=== PATIENT | female | born 1950 | race Caucasian/White ===

== ENCOUNTER → 2018-04-19 12:44 | Outpatient (CLI) | payer MEDICARE, MEDICAID, SELFPAY ==
--- NOTE | 2018-04-19 | DI.MRI.S_ITS ---
PROCEDURE: MR KNEE RT WO CON INDICATIONS: UNILATERAL PRIMARY OSTEOARTHRITIS RIGHT KNEE TECHNIQUE: Noncontrast sagittal PD fast spin echo and T2 fast spin echo with fat saturation, sagittal 3-D FLASH with fat saturation; coronal T1 spin echo and PD fast spin echo with fat saturation, and axial PD fast spin echo with fat saturation through the knee. COMPARISON: [facility], MR, KNEE WITHOUT CONTRAST, 03/10/2012 FINDINGS: Image quality: Excellent. Menisci: Lateral meniscus is intact. There is medial extrusion of the medial meniscus, as before. Previously seen radial tear of the posterior horn medial meniscus is no longer seen. There is new amorphous high signal intensity the within the free edge of the posterior horn medial meniscus and medial meniscal body, demonstrating superior and inferior articular surface extension, indicating degenerative tearing. Cruciate ligaments: The anterior and posterior cruciate ligaments appear intact. Medial structures: The medial collateral ligament appears intact. Visualized portions of the pes anserinus tendons appear normal. No abnormal bursal fluid. Lateral structures: The lateral collateral ligament, long and short heads of the biceps femoris tendon appear intact. The popliteus tendon appears normal. Iliotibial band appears normal. Anterior structures: The quadriceps and patellar tendons appear intact. Mild T2 signal elevation within the patellar tendon and the patellar insertion site is present, new since the prior examination. Patellar alignment is normal. No femoral trochlear dysplasia or ventral trochlear prominence. No edema in the infrapatellar fat pad. Bones and cartilage: No bone marrow contusions or fractures. Moderate tricompartmental periarticular osteophyte formation is present. Severe articular cartilage loss overlies the lateral patellar apex and adjacent aspect of lateral patellar facet, and has progressed compared to prior examination. An underlying intraosseous ganglia within the lateral patellar facet is present. Severe articular cartilage loss overlies the medial aspect of the medial patellar facet, which is increased. Severe diffuse articular cartilage loss overlies the weightbearing aspects of the medial femoral condyle and medial tibial plateau, as before. There is a new focal region of full-thickness articular cartilage loss overlying the posterior weightbearing aspect of the lateral femoral condyle measuring 8 mm anteroposteriorly. Joint space: There is a small knee joint effusion. There are 2 intra-articular loose bodies posteriorly measuring 8 mm and 5 mm. No Pérez's cyst. Normal appearing synovial plicae are incidentally noted. IMPRESSION: 1. Medial meniscal tearing as above. 2. Tricompartmental articular cartilage loss as described above. 3. Patellar tendinitis. 3. Small knee joint effusion. Intra-articular loose bodies. Dictated by: Mauricio Jung M.D. on 04/19/2018 at 15:36 Approved by: Mauricio Jung M.D. on 04/19/2018 at 15:42
== END ==
PROVIDERS: Family Provider Internal Medicine; PCP Internal Medicine; Visit Provider Orthopaedic Surgery
DX: M17.11 Unilateral primary osteoarthritis, right knee (principal); M23.221 Derangement of posterior horn of medial meniscus due to old tear or injury, right knee; M76.51 Patellar tendinitis, right knee; M25.461 Effusion, right knee
CPT/HCPCS: 73721

== ENCOUNTER 2018-05-10 12:05 | Inpatient (IN) | payer MEDICARE, MEDICAID, SELFPAY ==
[2018-04-28 14:01] VITALS: BMI 30.6
--- NOTE | 2018-05-09 16:08 | SUR.PREOP ---
Dr. Tapia notified pt's platelets 84 and shown EKG, VVO to repeat EKG and CBC DOS
[2018-05-10] VITALS (11 sets, daily range): BP systolic 105–134; BP diastolic 54–76; PULSE 67–93; RESP 12–20; TEMP 36.4–37.2; O2SAT 97–100; BMI 30.6
--- NOTE | 2018-05-10 06:00 | DI.RAD.S_ITS ---
PROCEDURE: XR KNEE RT 1TO2V INDICATIONS: total right knee TECHNIQUE: 2 view(s) of the knee acquired. COMPARISON: [facility] JOHNIE Kolb, XR KNEE ARTHRITIC SERIES LT, 12/08/2017, 15:22. FINDINGS: Bones: Patient is status post knee joint arthroplasty. Hardware components are in expected positions. Visualized bony structures are intact. Soft tissues: Overlying postoperative changes are noted. IMPRESSION: Normal alignment after right total knee arthroplasty, with a surgical drain overlying the operative bed. Dictated by: Boston Salvador M.D. on 05/11/2018 at 0:08 Approved by: Boston Salvador M.D. on 05/11/2018 at 0:09
[2018-05-10] MEDS: LACTATED RINGERS 1,000 ML 42 ML IV ×2 (13:05→15:27)
[2018-05-10] MEDS: VANCOMYCIN 1,000 MG/200 ML FROZ.PIGGY 200 MG IV (13:05)
[2018-05-10] MEDS: PREGABALIN 75 MG CAPSULE PO (13:36)
[2018-05-10] MEDS: ACETAMINOPHEN 325 MG TABLET 975 MG PO ×2 (13:36→21:44)
[2018-05-10 13:57] LABS: Add Manual Diff / Slide Review NO; Basophils Percent Auto 0.3 % (0-2); Eosinophils Percent Auto 1.1 % (2-4); Hemoglobin 13.7 g/dL (12.0-16.0); Lymphocytes Percent Auto 12.4 % (25-40); Mean Corpuscular HGB Conc 33.5 % (30-36); Mean Corpuscular Hemoglobin 33.1 PG (26-34); Mean Corpuscular Volume 98.9 fL (80-100); Monocytes Percent Auto 4.1 % (3-14); Neutrophils Absolute Auto 5700 /uL (3000-5900); Neutrophils Percent Auto 82.1 % (50-75); Platelet Count 135 X10^3/uL (150-400); Red Blood Cell Count 4.14 X10^6/uL (4.0-5.2); Red Cell Distribution Width 14.3 % (11.6-14.8); White Blood Cell Count 6.9 X10^3/uL (4.5-11.0)
[2018-05-10] MEDS: fentaNYL 100 MCG/2 ML INJ IV ×2 (14:10→14:15)
[2018-05-10] MEDS: MIDAZOLAM 2 MG/2 ML VIAL IV (14:15)
[2018-05-10] MEDS: CEFAZOLIN 2 GM/100 ML FROZ.PIGGY IV ×2 (14:35→21:43)
--- NOTE | 2018-05-10 14:42 | PM.PREOP ---
Pre-operative Note Interval Note Pre-op Check: Yes History & Physical Reviewed by Physician and Yes Exam Performed Changes: Yes
--- NOTE | 2018-05-10 14:43 | PM.OP.1 ---
Operative Date/Time/Diagnoses Date of procedure: 05/10/18 Time of procedure: 14:43 Pre-op diagnosis: right knee OA Post-op diagnosis: same Procedure & Clinicians Procedure: right total knee arthroplasty Same procedure as scheduled: Yes Indications: The patient has had progressively worsening right knee pain with radiographic changes consistent with arthritis. Non-operative management has failed and the patient has requested total knee replacement. The risks, benefits and alternatives to surgery were discussed with the patient prior to proceeding. Risks discussed included, but were not limited to, failure to relieve pain, stiffness, infection, nerve damage, deep venous thrombosis, pulmonary embolism, stroke, coma, heart attack, permanent paralysis and , as well as the potential need for eventual revision of the prosthetic. Surgeon: Areli Cotto Spot Sprayer: Beena Simon Anesthesia Type: Spinal and Peripheral nerve block Operative Notes Findings: Severe right knee osteoarthritis Closure Type: primary Specimen(s): none sent Implants & Drains: Journey BCS2 femur 5, tibia 3, poly 10, patella 32x7.5 Applied: drain(s) Estimated Blood Loss (mL): 300 Blood products transfused: none Tourniquet time (min): 61 Procedure in detail: The patient was seen in the pre-operative area, where the patient identified the right knee as the operative site and this was marked with my initials. The patient received pre-operative antibiotics, and was taken to the operating room and placed on the operative table in the supine position. After satisfactory anesthesia, a multimedia services manager out was performed. The right leg was encircled with a tourniquet about the proximal thigh, and the leg was prepared from the toes to the tourniquet with ChloroPrep in the usual fashion and draped through sterile drapes. The leg was elevated and exsanguinated with Eschmark bandage and the tourniquet inflated to [250] mmHg pressure. The knee was approached through an approximately 18 cm incision centered over the patella and carried into the knee through a medial parapatellar arthrotomy. A portion of the medial and lateral meniscus was resected. Soft tissue was carefully mobilized around the patella the patella was measured with a caliper. Bone was resected from the patella and the patellar height was reconstituted with up an appropriate sized patellar component. A cover was then placed on the patella. A small amount of additional medial and lateral meniscus was resected. The visionare guide fit well to the distal femur. It looked like an appropriate distal femoral cut and the cut was made without difficulty. The rotation was assessed and the appropriate size femoral guide was placed on the distal femur and finishing cuts were made. There is no evidence of notching. The anterior, posterior and chamfer cuts were then made. The posterior osteophytes and soft tissues were then removed. The posterior capsule was injected with part of a mixture of 60 ml 0.25% Marcaine mixed with 20 ml Exparel for post operative pain control. The remainder of this mixture was injected into the capsule and subcutaneous tissues during cement curing. The tibia was prepared and the visionaire guide fit well to the distal tibia. The rotation was assessed. The patient was placed in extension residual medial and lateral meniscus as well as any residual bone was carefully resected. [No] additional tibia was resected. Hemostasis was achieved especially posteriorly. Additional local was injected into the posterior capsule. The extension gap was assessed and additional releases for gap balancing were performed as necessary. It was checked with the gap occupational therapy professor. The femoral component was trial was placed and the notch was finished. Trial tibial and femoral components were then placed and the knee placed through a range of motion. Range of motion was [0-130], with good stability throughout the range. The trials were then removed, and the tibia was finished. The bone was prepared with pulsatile lavage, and dried with a sponge. Cement was applied and the final prosthetics placed. Excess cement was removed during and after cement curing. A brief Betadine soak was performed. After confirming there was no extruded cement posteriorly, the final tibial insert was placed. The knee was copiously irrigated and the tourniquet deflated. Hemostasis was obtained with the Bovie. A drain was placed and brought out superolaterally. The capsule was closed with interrupted nonabsorbable sutures. The subcutaneous layer was closed with barbed sutures, and the skin with a running 3-0 V-Lock suture and Surgical glue. An Aquacel Ag dressing was applied and the patient was taken to recovery having tolerated the procedure well. Complications: none Condition: stable Disposition: Acute Care Plan for aftercare: The patient will be maintained on a standard total knee replacement protocol with weight bearing as tolerated. The patient will receive aspirin and sequential compression devices for DVT prophylaxis. The patient will be discharged home when safe for the home environment.
--- NOTE | 2018-05-10 15:15 | SUR.OPER ---
Supine on padded OR bed. Pillow under head, arms secured on padded armboards <90 degree abduction. Safety belt across torso. Non-operative leg secured with tape over blanket over lower leg. Operative leg secured in DeMayo/Blaze positioner. Foam padded brace at thigh of operative leg.
[2018-05-10] MEDS: BUPIVACAINE LIPOSOME 266 MG/20 ML VIAL INJ (15:23)
[2018-05-10] MEDS: BUPIVACAINE 0.25% W/ EPI VIAL 60 ML INJ (15:24)
[2018-05-10] MEDS: TRANEXAMIC ACID 1,000 MG VIAL 1000 MG INJ (15:25)
[2018-05-10] MEDS: POVIDONE-IODINE 15 ML, SODIUM CHLORIDE 0.9% 250 ML TOP (15:26)
[2018-05-10] MEDS: fentaNYL 100 MCG/2 ML INJ 25 MCG IV ×2 (17:15→17:20)
[2018-05-10] MEDS: HYDROCORTISONE 100 MG/2 ML VIAL IV (17:22)
--- NOTE | 2018-05-10 19:46 | PC.NURSE ---
jimmie note pt received from PACU, awake, alert and oriented X 4. Pt able to lift legs off bed. Does have numbness to feet and buttocks. Pt tolerated pudding with no N/V. Pt assisted up to BSC with walker. Pt had a small amount of urine incontinence while getting out of bed, but unable to void on commode. Anesthesia started at 14:30 per records, so patient needs to void by 22:30. Hemovac drain unclamped at 19:00.
[2018-05-10] MEDS: LACTATED RINGERS 1,000 ML 125 ML IV (20:12)
[2018-05-10] MEDS: DOCUSATE 100 MG CAPSULE PO (21:44)
[2018-05-10] MEDS: ASPIRIN EC 81 MG TABLET PO (21:44)
[2018-05-10] MEDS: CYCLOBENZAPRINE 10 MG TABLET 20 MG PO (21:44)
[2018-05-10] MEDS: risperiDONE 1 MG TABLET PO (21:46)
[2018-05-10] MEDS: HYDROXYCHLOROQUINE 200 MG TABLET 400 MG PO (21:46)
[2018-05-10] MEDS: OXYCODONE IR 5 MG TABLET PO (22:19)
[2018-05-10] MEDS: ZOLPIDEM 5 MG TABLET PO (22:33)
[2018-05-11] VITALS (9 sets, daily range): BP systolic 105–147; BP diastolic 56–96; PULSE 66–90; RESP 16–20; TEMP 35.9–37.1; O2SAT 94–98
[2018-05-11] MEDS: OXYCODONE IR 5 MG TABLET PO ×6 (03:15→21:50)
[2018-05-11 05:08] LABS: Hematocrit 32.7 % (36-46); Hemoglobin 11.2 g/dL (12.0-16.0)
[2018-05-11] MEDS: CEFAZOLIN 2 GM/100 ML FROZ.PIGGY IV (05:32)
--- NOTE | 2018-05-11 07:34 | P.PN_ITS ---
Subjective Date Patient Seen: 05/11/18 Time Patient Seen: 07:32 Interval history: Patient's pain is mild. Denies fever chills. No nausea vomiting. Otherwise without complaints this morning. Exam Vital Signs (past 8 hours): - 05/11/18 00:18 05/11/18 04:49 Temperature 97.4 F L 96.7 F L Pulse Rate 73 70 Respiratory Rate 16 16 Blood Pressure 109/63 110/56 L Pulse Oximetry 96 96 Oxygen Delivery Method Room Air Oxygen Flow Rate 18 Narrative Exam Narrative: 67-year-old female resting comfortably in bed in no apparent distress. Right knee dressing is clean, dry and intact. Motor functions intact distal right lower extremity. Sensation grossly intact to light touch. Objective Labs Result Diagrams: 05/11/18 04:42 Labs: Laboratory Results - last 24 hr 05/10/18 05/10/18 05/11/18 13:15 17:55 04:42 WBC 6.9 RBC 4.14 Hgb 13.7 11.2 L Hct 41.0 32.7 L MCV 98.9 MCH 33.1 MCHC 33.5 RDW 14.3 Plt Count 135 L Neut % (Auto) 82.1 H Lymph % (Auto) 12.4 L [place] % (Auto) 4.1 Eos % (Auto) 1.1 L Baso % (Auto) 0.3 Neut # (Auto) 5700 Nasal Screen MRSA (PCR) Negative for mrsa Assessment & Plan Post-op Postoperative Procedures Operation Date: 05/10/18 13:45 Actual Procedures Side Surgeon p Total Knee Arthroplasty Right Areli Cotto MD patient progressing as expected status post right total knee arthroplasty. Mobilize with physical therapy. [facility].
[2018-05-11] MEDS: SODIUM CHLORIDE 0.9% FLUSH 10 ML IV ×2 (08:27→21:58)
[2018-05-11] MEDS: ASPIRIN EC 81 MG TABLET PO ×2 (08:32→21:51)
[2018-05-11] MEDS: ACETAMINOPHEN 325 MG TABLET 975 MG PO ×3 (08:32→21:50)
[2018-05-11] MEDS: LEVOTHYROXINE 125 MCG TABLET PO (08:32)
[2018-05-11] MEDS: CHOLECALCIFEROL (VITAMIN D3) 1,000 UNIT TABLET 4000 UNIT PO (08:33)
[2018-05-11] MEDS: DOCUSATE 100 MG CAPSULE PO ×2 (08:34→21:51)
[2018-05-11] MEDS: CYCLOBENZAPRINE 10 MG TABLET PO (08:34)
[2018-05-11] MEDS: METFORMIN HCL 500 MG TABLET PO ×2 (08:34→21:52)
[2018-05-11] MEDS: risperiDONE 0.25 MG TABLET 0.5 MG PO (08:34)
[2018-05-11] MEDS: buPROPion SR 150 MG TAB 300 MG PO (10:01)
[2018-05-11] MEDS: Dextroamphetamine-Amphetamine 30 MG 30 EACH PO (10:01)
[2018-05-11] MEDS: predniSONE 5 MG TABLET 15 MG PO (10:02)
--- NOTE | 2018-05-11 10:27 | PT.IIE ---
Addendum entered and electronically signed by Margie Girard PT 05/11/18 13:54: This is to certify that I have reviewed this documentation and plan of care Original Note: Current Diagnoses Unilateral primary osteoarthritis, left knee (05/10/18) Surgery Performed Operation Date: 05/10/18 13:45 Actual Procedures p Total Knee Arthroplasty(Right) - Areli Cotto MD Surgical History (Last Updated 05/02/18 @ 13:56 by Sherice Christopher RN) History of arthroplasty of left knee (Acute) History of delivery (Acute) History of mandibular surgery (Acute) Hx of arthroscopy of right knee (Acute) Hx of cholecystectomy (Acute) Status post bilateral cataract extraction (Acute) Medical History (Last Updated 05/02/18 @ 13:56 by Sherice Christopher RN) ADHD (Acute) Balance problem (Acute) Bipolar 1 disorder (Acute) Chronic back pain (Acute) Chronic diarrhea (Acute) Concussion (Acute) HIGGINBOTHAM (dyspnea on exertion) (Acute) Depression (Acute) Diabetes (Acute) Fibromyalgia (Acute) Hyperlipemia (Acute) Hypothyroidism (Acute) Interstitial lung disease (Acute) PTSD (post-traumatic stress disorder) (Acute) Pneumonia (Acute) Sleep apnea with use of continuous positive airway pressure (CPAP) (Acute) Physical Therapy Inpatient Evaluation/Re-Eval M1 PT/OT-IP Prior Functional Status Start: 05/11/18 12:23 Freq: NEEDED Status: Active Protocol: Document 05/11/18 10:27 (Rec: 05/11/18 13:36 [id number]) Medical Review Prior Functional Status Medical History Reviewed Yes Communication No deficits noted. Mobility and Gait Pt ambulated indep primarily with a SPC indoors/outdoors but occasionally ambulates without AD or a 4WW indoors. Prior Functional Level (Other details) States prior independence with all mobilities. Social History Household Members other Living Arrangements House Number of Floors (Floors) One Floor Number of Stairs To Enter/Railing? 2 steps with bilateral wide rails. Home Environment Standard Height Toilet Tub/Shower Home Equipment Four Wheel Walker Straight Cane Shower Seat with Backrest Employment Status Unknown Additional Social History Comment Pt lives alone. She has a roommate who works and is in and out but otherwise reports no regular home assistance availiable. M2 PT-IP Current Condition Start: 05/11/18 12:23 Freq: NEEDED Status: Active Protocol: Document 05/11/18 10:27 (Rec: 05/11/18 13:36 [id number]) Physical Therapy Current Condition Current Condition Evaluation Date 05/11/18 Treatment Diagnosis R TKA; difficulty with gait Onset Date 05/10/18 Weight Bearing Status Weight Bearing Status Weight Bear as Tolerated M3 PT-IP Subjective Start: 05/11/18 12:23 Freq: NEEDED Status: Active Protocol: Document 05/11/18 10:27 (Rec: 05/11/18 13:36 [id number]) Subjective Physical Therapy Visit Type Type Initial Evaluation Visit Start Time 10:27 Visit Stop Time 11:04 Total Visit Minutes 37 Number of LAB ANIMAL TECHNICIAN Visits 0 Physical Therapy Visit Comments Patient Comments Pt states she is in high levels of pain. Yesterday she was unable to put any weight at all into the RLE due to pain. Therapy Pain Assessment Pain When Pain Assessed After Treatment Pain Present Pain Present Pain Reported Location Right Knee Intensity 8 Scale Used Numeric (1 - 10) Pain Management Techniques Apply Cold Re-positioning Timing of Activity with Medications M4 PT-IP Mobility and Gait Start: 05/11/18 12:23 Freq: NEEDED Status: Active Protocol: Document 05/11/18 10:27 (Rec: 05/11/18 13:36 [id number]) PT-Bed Mobility Assessment Supine to Sit Supine to Sit Standby Assistance Sit to Supine Sit to Supine Minimal Assistance Scooting Scooting to Edge of Bed Standby Assistance PT-Transfer Assessment Sit to and From Stand Sit to and from Stand Minimal Assistance Equipment Transfer Assistive Device Gait Belt Front Wheeled Walker Orthotic/Prosthetic Devices or Brace: No Comments Mobility Comments Pt needing ample time and mod cues/instruction for all bed mobilities. Pt requiring Radha x1 for sit > supine for assist guiding RLE to bedside. She prefers to get in/out of the bed to the L side as this is how her bed is at home. Min cues needed to avoid UE support on Fww when sit <> stand. Gait Assessment Gait Gait Assistance Required: Minimum Assistance Distance (Feet) 10 Able to Maintain Weight Bearing Status Yes During Gait Assistive Devices Assistive Device Gait Belt Front Wheeled Walker Orthotic/Prosthetic Devices or Brace: No Gait Deviations General Gait Pattern Antalgic Decreased Stride Length Decreased Feet Clearance Factors Limiting Gait Function Factors Limiting Gait Function Decreased Activity Tolerance Decreased Strength Incoordination Limited Range of Motion Pain Poor Balance Poor Safety Awareness Comments Gait Comments Pt ambulates 10+10 feet in room to recliner and back to bed. Needs cues to activate quads for RLE support during stance phase. Pt demonstrates variable step width and has inconsistent step through vs step to gait. Gait speed is decreased. PT-Balance Assessment Sitting Balance and Reactions Static Sitting Balance Ability Good Dynamic Sitting Balance Ability Good Standing Balance and Reactions Static Standing Balance Ability Fair Dynamic Standing Balance Ability Fair Device Used FWW M5 PT-IP Objective Assessments Start: 05/11/18 12:23 Freq: NEEDED Status: Active Protocol: Document 05/11/18 10:27 (Rec: 05/11/18 13:36 [id number]) Orientation Orientation/Cognition Level of Alertness Alert Orientation Name Birthday Place Situation Safety Awareness Decreased Safety Awareness Comments pt able to make needs known. Gross Range of Motion Lower Extremity ROM Assessment Right Impaired Impairments R knee flexion ~40 deg. Strength Lower Extremity Strength Assessment Bilaterally Impaired Comments Strength Comments RLE grossly 2+ to 3-/5 with c/ o of high levels of pain. LLE 4-/5 Sensation Assessment Sensation Gross Sensation WNL M6 PT-IP Treatment Start: 05/11/18 12:23 Freq: NEEDED Status: Active Protocol: Document 05/11/18 10:27 (Rec: 05/11/18 13:36 [id number]) Physical Therapy Treatment Education Education Provided Weight Bearing Status Safety M7 PT-IP Assessment and Plan Start: 05/11/18 12:23 Freq: NEEDED Status: Active Protocol: Document 05/11/18 10:27 (Rec: 05/11/18 13:36 [id number]) PT Summary Assessment and Plan Potential Rehabilitation Potential Good Status of Condition at Evaluation Stable Summary Impairments Pain ROM Strength Balance Coordination Bed Mobility Transfers Gait Activity Tolerance Progress Towards Goals Progressing Toward Goals Assessment Summary Pt s/p R TKA and difficulty with gait. Primary impairments include decreased BLE strength demonstrated by need for Radha during sit<> stand. Impaired gait speed and variable step width demonstrates a risk for falls. Recommend d/c to SNF due to patient level of assist and risk for falls and has no available support at home. Goals Bed Mobility Goal Standby Assistance Transfer Goal Standby Assistance Front Wheeled Walker Gait Goal Standby Assistance Front Wheel Walker Gait Distance 100 Other Goals STG: pt will ambulate 50 ft using consistent step through gait pattern with Fww, min cues and CGA. LTG: pt will ambulate 100 ft using consistent step through gait pattern with Fww, min cues and CGA. Days to Meet Goals 3 Frequency of Treatment Frequency Of Treatment Twice a Day Treatment Plan Physical Therapy Treatment Plan Bed Mobility Training Transfer Training Gait Training Therapeutic Exercise Balance Retraining Post Op Education Discharge Planning Hot or Cold Pack Neuromuscular Re-ed Coordination Retraining Other Recommendations and Next Treatment Continue to progress work on Focus sit <> stand transfers and gait training. Recommendations To Nursing Amount of Assist Needed 1 Person Assist Discharge Recommendations PT Discharge Recommendations SNF Rehab
--- NOTE | 2018-05-11 13:53 | PT.IIE ---
Current Diagnoses Unilateral primary osteoarthritis, left knee (05/10/18) Surgery Performed Operation Date: 05/10/18 13:45 Actual Procedures p Total Knee Arthroplasty(Right) - Areli Cotto MD Surgical History (Last Updated 05/02/18 @ 13:56 by Sherice Christopher RN) History of arthroplasty of left knee (Acute) History of delivery (Acute) History of mandibular surgery (Acute) Hx of arthroscopy of right knee (Acute) Hx of cholecystectomy (Acute) Status post bilateral cataract extraction (Acute) Medical History (Last Updated 05/02/18 @ 13:56 by Sherice Christopher RN) ADHD (Acute) Balance problem (Acute) Bipolar 1 disorder (Acute) Chronic back pain (Acute) Chronic diarrhea (Acute) Concussion (Acute) HIGGINBOTHAM (dyspnea on exertion) (Acute) Depression (Acute) Diabetes (Acute) Fibromyalgia (Acute) Hyperlipemia (Acute) Hypothyroidism (Acute) Interstitial lung disease (Acute) PTSD (post-traumatic stress disorder) (Acute) Pneumonia (Acute) Sleep apnea with use of continuous positive airway pressure (CPAP) (Acute) Physical Therapy Inpatient Evaluation/Re-Eval M1 PT/OT-IP Prior Functional Status Start: 05/11/18 12:23 Freq: NEEDED Status: Active Protocol: Document 05/11/18 10:27 (Rec: 05/11/18 13:36 [id number]) Medical Review Prior Functional Status Medical History Reviewed Yes Communication No deficits noted. Mobility and Gait Pt ambulated indep primarily with a SPC indoors/outdoors but occasionally ambulates without AD or a 4WW indoors. Prior Functional Level (Other details) States prior independence with all mobilities. Social History Household Members other Living Arrangements House Number of Floors (Floors) One Floor Number of Stairs To Enter/Railing? 2 steps with bilateral wide rails. Home Environment Standard Height Toilet Tub/Shower Home Equipment Four Wheel Walker Straight Cane Shower Seat with Backrest Employment Status Unknown Additional Social History Comment Pt lives alone. She has a roommate who works and is in and out but otherwise reports no regular home assistance availiable. M2 PT-IP Current Condition Start: 05/11/18 12:23 Freq: NEEDED Status: Active Protocol: Document 05/11/18 10:27 (Rec: 05/11/18 13:36 [id number]) Physical Therapy Current Condition Current Condition Evaluation Date 05/11/18 Treatment Diagnosis R TKA; difficulty with gait Onset Date 05/10/18 Weight Bearing Status Weight Bearing Status Weight Bear as Tolerated M3 PT-IP Subjective Start: 05/11/18 12:23 Freq: NEEDED Status: Active Protocol: Document 05/11/18 10:27 (Rec: 05/11/18 13:36 [id number]) Subjective Physical Therapy Visit Type Type Initial Evaluation Visit Start Time 10:27 Visit Stop Time 11:04 Total Visit Minutes 37 Number of ANIMAL SHELTER SUPERVISOR Visits 0 Physical Therapy Visit Comments Patient Comments Pt states she is in high levels of pain. Yesterday she was unable to put any weight at all into the RLE due to pain. Therapy Pain Assessment Pain When Pain Assessed After Treatment Pain Present Pain Present Pain Reported Location Right Knee Intensity 8 Scale Used Numeric (1 - 10) Pain Management Techniques Apply Cold Re-positioning Timing of Activity with Medications M4 PT-IP Mobility and Gait Start: 05/11/18 12:23 Freq: NEEDED Status: Active Protocol: Document 05/11/18 10:27 (Rec: 05/11/18 13:36 [id number]) PT-Bed Mobility Assessment Supine to Sit Supine to Sit Standby Assistance Sit to Supine Sit to Supine Minimal Assistance Scooting Scooting to Edge of Bed Standby Assistance PT-Transfer Assessment Sit to and From Stand Sit to and from Stand Minimal Assistance Equipment Transfer Assistive Device Gait Belt Front Wheeled Walker Orthotic/Prosthetic Devices or Brace: No Comments Mobility Comments Pt needing ample time and mod cues/instruction for all bed mobilities. Pt requiring Radha x1 for sit > supine for assist guiding RLE to bedside. She prefers to get in/out of the bed to the L side as this is how her bed is at home. Min cues needed to avoid UE support on Fww when sit <> stand. Gait Assessment Gait Gait Assistance Required: Minimum Assistance Distance (Feet) 10 Able to Maintain Weight Bearing Status Yes During Gait Assistive Devices Assistive Device Gait Belt Front Wheeled Walker Orthotic/Prosthetic Devices or Brace: No Gait Deviations General Gait Pattern Antalgic Decreased Stride Length Decreased Feet Clearance Factors Limiting Gait Function Factors Limiting Gait Function Decreased Activity Tolerance Decreased Strength Incoordination Limited Range of Motion Pain Poor Balance Poor Safety Awareness Comments Gait Comments Pt ambulates 10+10 feet in room to recliner and back to bed. Needs cues to activate quads for RLE support during stance phase. Pt demonstrates variable step width and has inconsistent step through vs step to gait. Gait speed is decreased. PT-Balance Assessment Sitting Balance and Reactions Static Sitting Balance Ability Good Dynamic Sitting Balance Ability Good Standing Balance and Reactions Static Standing Balance Ability Fair Dynamic Standing Balance Ability Fair Device Used FWW M5 PT-IP Objective Assessments Start: 05/11/18 12:23 Freq: NEEDED Status: Active Protocol: Document 05/11/18 10:27 (Rec: 05/11/18 13:36 [id number]) Orientation Orientation/Cognition Level of Alertness Alert Orientation Name Birthday Place Situation Safety Awareness Decreased Safety Awareness Comments pt able to make needs known. Gross Range of Motion Lower Extremity ROM Assessment Right Impaired Impairments R knee flexion ~40 deg. Strength Lower Extremity Strength Assessment Bilaterally Impaired Comments Strength Comments RLE grossly 2+ to 3-/5 with c/ o of high levels of pain. LLE 4-/5 Sensation Assessment Sensation Gross Sensation WNL M6 PT-IP Treatment Start: 05/11/18 12:23 Freq: NEEDED Status: Active Protocol: Document 05/11/18 10:27 (Rec: 05/11/18 13:36 [id number]) Physical Therapy Treatment Education Education Provided Weight Bearing Status Safety M7 PT-IP Assessment and Plan Start: 05/11/18 12:23 Freq: NEEDED Status: Active Protocol: Document 05/11/18 10:27 (Rec: 05/11/18 13:36 [id number]) PT Summary Assessment and Plan Potential Rehabilitation Potential Good Status of Condition at Evaluation Stable Summary Impairments Pain ROM Strength Balance Coordination Bed Mobility Transfers Gait Activity Tolerance Progress Towards Goals Progressing Toward Goals Assessment Summary Pt s/p R TKA and difficulty with gait. Primary impairments include decreased BLE strength demonstrated by need for Radha during sit<> stand. Impaired gait speed and variable step width demonstrates a risk for falls. Recommend d/c to SNF due to patient level of assist and risk for falls and has no available support at home. Goals Bed Mobility Goal Standby Assistance Transfer Goal Standby Assistance Front Wheeled Walker Gait Goal Standby Assistance Front Wheel Walker Gait Distance 100 Other Goals STG: pt will ambulate 50 ft using consistent step through gait pattern with Fww, min cues and CGA. LTG: pt will ambulate 100 ft using consistent step through gait pattern with Fww, min cues and CGA. Days to Meet Goals 3 Frequency of Treatment Frequency Of Treatment Twice a Day Treatment Plan Physical Therapy Treatment Plan Bed Mobility Training Transfer Training Gait Training Therapeutic Exercise Balance Retraining Post Op Education Discharge Planning Hot or Cold Pack Neuromuscular Re-ed Coordination Retraining Other Recommendations and Next Treatment Continue to progress work on Focus sit <> stand transfers and gait training. Recommendations To Nursing Amount of Assist Needed 1 Person Assist Discharge Recommendations PT Discharge Recommendations SNF Rehab
--- NOTE | 2018-05-11 14:34 | PC.NURSE ---
pt transferred to room 214 in her bed - she is tolerating PT well and using bsc as needed- good appetite and reports no nausea. Oxycododne 5mg po q 3 hours along with scheduled acetaminophen are keeping pt comfortable at present
--- NOTE | 2018-05-11 15:00 | PT.IPTN ---
Current Diagnoses Unilateral primary osteoarthritis, left knee (05/10/18) Surgery Performed Operation Date: 05/10/18 13:45 Actual Procedures p Total Knee Arthroplasty(Right) - Areli Cotto MD Physical Therapy Treatment Note M2 PT-IP Current Condition Start: 05/11/18 12:23 Freq: NEEDED Status: Active Protocol: Document 05/11/18 10:27 (Rec: 05/11/18 13:36 [id number]) Physical Therapy Current Condition Current Condition Evaluation Date 05/11/18 Treatment Diagnosis R TKA; difficulty with gait Onset Date 05/10/18 Weight Bearing Status Weight Bearing Status Weight Bear as Tolerated M3 PT-IP Subjective Start: 05/11/18 12:23 Freq: NEEDED Status: Active Protocol: Document 05/11/18 15:00 GGD (Rec: 05/11/18 15:22 GGD [id number]) Subjective Physical Therapy Visit Type Type Treatment Note Visit Start Time 14:35 Visit Stop Time 15:00 Total Visit Minutes 25 Number of BIOMETRIC FINGERPRINTING TECHNICIAN Visits 1 Physical Therapy Visit Comments Patient Comments Pt states that she needs to use the bathroom. Therapy Pain Assessment Pain When Pain Assessed During Mobility Pain Present Pain Present Pain Reported Location Right Knee Intensity 5 Scale Used Numeric (1 - 10) Pain Management Techniques Timing of Activity with Medications M4 PT-IP Mobility and Gait Start: 05/11/18 12:23 Freq: NEEDED Status: Active Protocol: Document 05/11/18 15:00 GGD (Rec: 05/11/18 15:22 GGD [id number]) PT-Bed Mobility Assessment Supine to Sit Supine to Sit Minimal Assistance Sit to Supine Sit to Supine Minimal Assistance Scooting Scooting to Edge of Bed Standby Assistance PT-Transfer Assessment Sit to and From Stand Sit to and from Stand Contact Guard Assistance Use of Upper Extremities Equipment Transfer Assistive Device Gait Belt Front Wheeled Walker Orthotic/Prosthetic Devices or Brace: No Transfers Transfer Destination Bed Bedside Commode Comments Mobility Comments Pt needed min A for assistance with RLE. Gait Assessment Gait Gait Assistance Required: Contact Guard Assist Distance (Feet) 30 Able to Maintain Weight Bearing Status Yes During Gait Assistive Devices Assistive Device Gait Belt Front Wheeled Walker Orthotic/Prosthetic Devices or Brace: No Gait Deviations General Gait Pattern Antalgic Decreased Stride Length Decreased Feet Clearance Factors Limiting Gait Function Factors Limiting Gait Function Decreased Strength Limited Range of Motion Pain M5 PT-IP Objective Assessments Start: 05/11/18 12:23 Freq: NEEDED Status: Active Protocol: Document 05/11/18 10:27 (Rec: 05/11/18 13:36 [id number]) Orientation Orientation/Cognition Level of Alertness Alert Orientation Name Birthday Place Situation Safety Awareness Decreased Safety Awareness Comments pt able to make needs known. Gross Range of Motion Lower Extremity ROM Assessment Right Impaired Impairments R knee flexion ~40 deg. Strength Lower Extremity Strength Assessment Bilaterally Impaired Comments Strength Comments RLE grossly 2+ to 3-/5 with c/ o of high levels of pain. LLE 4-/5 Sensation Assessment Sensation Gross Sensation WNL M6 PT-IP Treatment Start: 05/11/18 12:23 Freq: NEEDED Status: Active Protocol: Document 05/11/18 15:00 GGD (Rec: 05/11/18 15:22 GGD [id number]) Physical Therapy Treatment Education Education Provided Post-Op Packet M7 PT-IP Assessment and Plan Start: 05/11/18 12:23 Freq: NEEDED Status: Active Protocol: Document 05/11/18 15:00 GGD (Rec: 05/11/18 15:22 GGD [id number]) PT Summary Assessment and Plan Summary Assessment Summary Pt needs assistance with R LE for bed mobility. She was stable with gait, but did have decrease step length. She need cues for hand and foot placement with transfers. Frequency of Treatment Frequency Of Treatment Twice a Day Treatment Plan Other Recommendations and Next Treatment Continue to progress work on Focus sit <> stand transfers and gait training. Recommendations To Nursing Amount of Assist Needed 1 Person Assist Discharge Recommendations PT Discharge Recommendations SNF Rehab
[2018-05-11] MEDS: ALBUTEROL 2.5 MG/3 ML NEB (ADULT) INH (17:39)
--- NOTE | 2018-05-11 18:43 | PC.NURSE ---
1600- Pt sitting up in bed using PC. 97% RA, LS clear, CMS ++ PP+. 1830-Pt medicated with percolone 5mg PO as requested for pain 12/09. Acewrap removed from right knee per Dr. Cotto. Pt resting quietly in bed watching TV. Call light in reach, bed alarm on.
[2018-05-11] MEDS: CYCLOBENZAPRINE 10 MG TABLET 20 MG PO (21:51)
[2018-05-11] MEDS: HYDROXYCHLOROQUINE 200 MG TABLET 400 MG PO (21:52)
[2018-05-11] MEDS: risperiDONE 1 MG TABLET PO (21:52)
[2018-05-11] MEDS: ZOLPIDEM 5 MG TABLET PO (21:58)
[2018-05-12] VITALS (8 sets, daily range): BP systolic 104–134; BP diastolic 54–64; PULSE 64–80; RESP 16–18; TEMP 35.6–36.8; O2SAT 97–100
[2018-05-12] MEDS: LEVOTHYROXINE 125 MCG TABLET PO (05:51)
[2018-05-12] MEDS: OXYCODONE IR 5 MG TABLET PO ×6 (06:18→21:00)
--- NOTE | 2018-05-12 06:45 | PC.NURSE ---
Pt refused to get up to the BR. pt does not have the urge to void. hemovac output: 60cc
[2018-05-12] MEDS: ACETAMINOPHEN 325 MG TABLET 975 MG PO ×3 (08:46→21:00)
[2018-05-12] MEDS: ALBUTEROL 2.5 MG/3 ML NEB (ADULT) INH ×2 (09:07→17:48)
--- NOTE | 2018-05-12 09:13 | P.PN_ITS ---
Subjective Date Patient Seen: 05/12/18 Interval history: Patient seen bedside s/p r. TKA POD #2. Patient is doing well , is having pain but it is not an unexpected amount. She denies CP, SOB, N/V, and calf pain. She is recommended for discharge to a SNF. Exam Vital Signs (past 8 hours): - 05/12/18 04:01 05/12/18 04:33 05/12/18 08:00 Temperature 96.1 F L 97.6 F 97.3 F L Pulse Rate 66 66 Respiratory Rate 18 16 Blood Pressure 134/60 110/64 Pulse Oximetry 98 100 Oxygen Delivery Method CPAP Oxygen Flow Rate 0 Narrative Exam Narrative: WDWN NAD A&OX3. Right knee dressing is CDI, minimal drainage in the hemovac drain. She is NVI in the right extremity with a soft and compressible calf. Objective Labs Result Diagrams: 05/11/18 04:42 Assessment & Plan Post-op Postoperative Procedures Operation Date: 05/10/18 13:45 Actual Procedures Side Surgeon p Total Knee Arthroplasty Right Areli Cotto MD 1. Continue pain control, PT 2. Remove hemovac drain 3. D/c to [facility] tomorrow pending auth and beds
[2018-05-12] MEDS: CYCLOBENZAPRINE 10 MG TABLET PO (09:49)
[2018-05-12] MEDS: SODIUM CHLORIDE 0.9% FLUSH 10 ML IV ×2 (09:49→20:00)
[2018-05-12] MEDS: buPROPion SR 150 MG TAB 300 MG PO (09:49)
[2018-05-12] MEDS: predniSONE 5 MG TABLET 15 MG PO (09:49)
[2018-05-12] MEDS: DOCUSATE 100 MG CAPSULE PO ×2 (09:50→20:03)
[2018-05-12] MEDS: METFORMIN HCL 500 MG TABLET PO ×2 (09:50→20:05)
[2018-05-12] MEDS: risperiDONE 0.25 MG TABLET 0.5 MG PO (09:50)
[2018-05-12] MEDS: CHOLECALCIFEROL (VITAMIN D3) 1,000 UNIT TABLET 4000 UNIT PO (09:51)
[2018-05-12] MEDS: ASPIRIN EC 81 MG TABLET PO ×2 (09:51→20:01)
[2018-05-12] MEDS: Dextroamphetamine-Amphetamine 30 MG 30 EACH PO (09:55)
--- NOTE | 2018-05-12 10:34 | PC.NURSE ---
Day shift: Per convo w/ CATHERINE Verdin Polo-vac removed by student at this time. 2x2 gauze w/ tegaderm in place. Labeled and dated. Pt also up OOB w/ PT tolerated ambulating in halls. Call light in reach and bed alarm is on.
--- NOTE | 2018-05-12 10:35 | PT.IPTN ---
Current Diagnoses Unilateral primary osteoarthritis, left knee (05/10/18) Surgery Performed Operation Date: 05/10/18 13:45 Actual Procedures p Total Knee Arthroplasty(Right) - Areli Cotto MD Physical Therapy Treatment Note M2 PT-IP Current Condition Start: 05/11/18 12:23 Freq: NEEDED Status: Active Protocol: Document 05/11/18 10:27 (Rec: 05/11/18 13:36 [id number]) Physical Therapy Current Condition Current Condition Evaluation Date 05/11/18 Treatment Diagnosis R TKA; difficulty with gait Onset Date 05/10/18 Weight Bearing Status Weight Bearing Status Weight Bear as Tolerated M3 PT-IP Subjective Start: 05/11/18 12:23 Freq: NEEDED Status: Active Protocol: Document 05/12/18 10:35 GGD (Rec: 05/12/18 12:33 GGD [id number]) Subjective Physical Therapy Visit Type Type Treatment Note Visit Start Time 10:05 Visit Stop Time 10:35 Total Visit Minutes 30 Number of STAIR BUILDER Visits 2 Physical Therapy Visit Comments Patient Comments Pt states she would like to go to the bathroom. Therapy Pain Assessment Pain When Pain Assessed During Mobility Pain Present Pain Present Pain Reported Location Right Knee Intensity 6 Scale Used Numeric (1 - 10) Pain Management Techniques Timing of Activity with Medications M4 PT-IP Mobility and Gait Start: 05/11/18 12:23 Freq: NEEDED Status: Active Protocol: Document 05/12/18 10:35 GGD (Rec: 05/12/18 12:33 GGD [id number]) PT-Bed Mobility Assessment Supine to Sit Supine to Sit Minimal Assistance Sit to Supine Sit to Supine Minimal Assistance Scooting Scooting to Edge of Bed Standby Assistance PT-Transfer Assessment Sit to and From Stand Sit to and from Stand Contact Guard Assistance Use of Upper Extremities Equipment Transfer Assistive Device Gait Belt Front Wheeled Walker Orthotic/Prosthetic Devices or Brace: No Transfers Transfer Destination Bed Toilet Comments Mobility Comments Pt needed min A for assistance with RLE. Gait Assessment Gait Gait Assistance Required: Contact Guard Assist Distance (Feet) 80 Able to Maintain Weight Bearing Status Yes During Gait Assistive Devices Assistive Device Gait Belt Front Wheeled Walker Orthotic/Prosthetic Devices or Brace: No Gait Deviations General Gait Pattern Antalgic Decreased Stride Length Decreased Feet Clearance Factors Limiting Gait Function Factors Limiting Gait Function Decreased Strength Limited Range of Motion Pain M5 PT-IP Objective Assessments Start: 05/11/18 12:23 Freq: NEEDED Status: Active Protocol: Document 05/11/18 10:27 (Rec: 05/11/18 13:36 [id number]) Orientation Orientation/Cognition Level of Alertness Alert Orientation Name Birthday Place Situation Safety Awareness Decreased Safety Awareness Comments pt able to make needs known. Gross Range of Motion Lower Extremity ROM Assessment Right Impaired Impairments R knee flexion ~40 deg. Strength Lower Extremity Strength Assessment Bilaterally Impaired Comments Strength Comments RLE grossly 2+ to 3-/5 with c/ o of high levels of pain. LLE 4-/5 Sensation Assessment Sensation Gross Sensation WNL M6 PT-IP Treatment Start: 05/11/18 12:23 Freq: NEEDED Status: Active Protocol: Document 05/12/18 10:35 GGD (Rec: 05/12/18 12:33 GGD [id number]) Physical Therapy Treatment Exercises Exercises Ankle Pumps Quad Sets Heel Slides Seated Knee Flexion/Extension Education Education Provided Safety M7 PT-IP Assessment and Plan Start: 05/11/18 12:23 Freq: NEEDED Status: Active Protocol: Document 05/12/18 10:35 GGD (Rec: 05/12/18 12:33 GGD [id number]) PT Summary Assessment and Plan Summary Assessment Summary Pt improving with gait. She still needs assistance with with right LE for bed mobility and cues for foot postion with sit <> stand. Frequency of Treatment Frequency Of Treatment Twice a Day Treatment Plan Other Recommendations and Next Treatment Continue to progress work on Focus sit <> stand transfers and gait training. Recommendations To Nursing Amount of Assist Needed 1 Person Assist Discharge Recommendations PT Discharge Recommendations SNF Rehab
--- NOTE | 2018-05-12 12:19 | CM.DPC ---
Clinicals faxed to Moon @[facility] walter Muller
--- NOTE | 2018-05-12 12:34 | PC.NURSE ---
Day shift: Checked Dressing over barbara-vac removal site. 2x2 with tegaderm is CDI.
--- NOTE | 2018-05-12 14:20 | PT.IPTN ---
Current Diagnoses Unilateral primary osteoarthritis, left knee (05/10/18) Surgery Performed Operation Date: 05/10/18 13:45 Actual Procedures p Total Knee Arthroplasty(Right) - Areli Cotto MD Physical Therapy Treatment Note M2 PT-IP Current Condition Start: 05/11/18 12:23 Freq: NEEDED Status: Active Protocol: Document 05/11/18 10:27 (Rec: 05/11/18 13:36 [id number]) Physical Therapy Current Condition Current Condition Evaluation Date 05/11/18 Treatment Diagnosis R TKA; difficulty with gait Onset Date 05/10/18 Weight Bearing Status Weight Bearing Status Weight Bear as Tolerated M3 PT-IP Subjective Start: 05/11/18 12:23 Freq: NEEDED Status: Active Protocol: Document 05/12/18 14:20 GGD (Rec: 05/12/18 16:45 GGD [email or web address]) Subjective Physical Therapy Visit Type Type Treatment Note Visit Start Time 13:50 Visit Stop Time 14:20 Total Visit Minutes 30 Number of SEAMER ELASTIC BAND Visits 3 Physical Therapy Visit Comments Patient Comments Pt states she ready to walk. Therapy Pain Assessment Pain When Pain Assessed At Rest Pain Present Pain Present Pain Reported Location Right Knee Intensity 2 Scale Used Numeric (1 - 10) Pain Management Techniques Apply Cold Timing of Activity with Medications M4 PT-IP Mobility and Gait Start: 05/11/18 12:23 Freq: NEEDED Status: Active Protocol: Document 05/12/18 14:20 GGD (Rec: 05/12/18 16:45 GGD [email or web address]) PT-Bed Mobility Assessment Supine to Sit Supine to Sit Minimal Assistance Sit to Supine Sit to Supine Minimal Assistance Scooting Scooting to Edge of Bed Standby Assistance PT-Transfer Assessment Sit to and From Stand Sit to and from Stand Contact Guard Assistance Use of Upper Extremities Equipment Transfer Assistive Device Gait Belt Front Wheeled Walker Orthotic/Prosthetic Devices or Brace: No Transfers Transfer Destination Bed Comments Mobility Comments Pt needed min A for assistance with RLE. Gait Assessment Gait Gait Assistance Required: Contact Guard Assist Distance (Feet) 100 Able to Maintain Weight Bearing Status Yes During Gait Assistive Devices Assistive Device Gait Belt Front Wheeled Walker Orthotic/Prosthetic Devices or Brace: No Gait Deviations General Gait Pattern Antalgic Decreased Stride Length Decreased Feet Clearance Factors Limiting Gait Function Factors Limiting Gait Function Decreased Strength Limited Range of Motion Pain M5 PT-IP Objective Assessments Start: 05/11/18 12:23 Freq: NEEDED Status: Active Protocol: Document 05/11/18 10:27 (Rec: 05/11/18 13:36 [id number]) Orientation Orientation/Cognition Level of Alertness Alert Orientation Name Birthday Place Situation Safety Awareness Decreased Safety Awareness Comments pt able to make needs known. Gross Range of Motion Lower Extremity ROM Assessment Right Impaired Impairments R knee flexion ~40 deg. Strength Lower Extremity Strength Assessment Bilaterally Impaired Comments Strength Comments RLE grossly 2+ to 3-/5 with c/ o of high levels of pain. LLE 4-/5 Sensation Assessment Sensation Gross Sensation WNL M6 PT-IP Treatment Start: 05/11/18 12:23 Freq: NEEDED Status: Active Protocol: Document 05/12/18 14:20 GGD (Rec: 05/12/18 16:45 GGD [email or web address]) Physical Therapy Treatment Exercises Exercises Ankle Pumps Quad Sets Heel Slides Straight Leg Raises Seated Knee Flexion/Extension M7 PT-IP Assessment and Plan Start: 05/11/18 12:23 Freq: NEEDED Status: Active Protocol: Document 05/12/18 14:20 GGD (Rec: 05/12/18 16:45 GGD [email or web address]) PT Summary Assessment and Plan Summary Assessment Summary Pt able to progress gait. She need cues for gait technique. She needs assistance with right LE for bed mobility. Frequency of Treatment Frequency Of Treatment Twice a Day Treatment Plan Other Recommendations and Next Treatment Continue to progress work on Focus sit <> stand transfers and gait training. Recommendations To Nursing Amount of Assist Needed 1 Person Assist Discharge Recommendations PT Discharge Recommendations SNF Rehab
--- NOTE | 2018-05-12 15:13 | CM.DPC ---
DCP Cont: Spoke w/Moon, who is covering admissions for [facility] today, confirmed that pt okay to DC to [facility] Wednesday? Moon requested a referral packet today which [facility] admin Debby faxed. Moon expected to work on pre-auth through [facility] today. DC anticipated Wednesday, hopefully authorization for SNF will be secured. Following closely. DC to [facility] is expected Wednesday. [place]
[2018-05-12] MEDS: CYCLOBENZAPRINE 10 MG TABLET 20 MG PO (20:03)
[2018-05-12] MEDS: HYDROXYCHLOROQUINE 200 MG TABLET 400 MG PO (20:04)
[2018-05-12] MEDS: risperiDONE 1 MG TABLET PO (20:08)
[2018-05-12] MEDS: ZOLPIDEM 5 MG TABLET PO (22:33)
[2018-05-13 00:11] VITALS: BP 122/59; PULSE 74; RESP 16; TEMP 36.4; O2SAT 96
[2018-05-13] MEDS: OXYCODONE IR 5 MG TABLET PO ×4 (02:56→13:06)
[2018-05-13 04:58] VITALS: BP 108/50; PULSE 66; RESP 15; TEMP 36.9; O2SAT 96
[2018-05-13 08:00] VITALS: BP 91/54; PULSE 69; RESP 16; TEMP 36.6; O2SAT 96
--- NOTE | 2018-05-13 08:56 | PM.DS.1 ---
History of Present Illness Date Patient Seen: 05/13/18 Time Patient Seen: 08:56 Chief complaint: *OPB* [id number] Narrative: The patient has had progressively worsening right knee pain with radiographic changes consistent with arthritis. Non-operative management has failed and the patient has requested total knee replacement. The risks, benefits and alternatives to surgery were discussed with the patient prior to proceeding. Risks discussed included, but were not limited to, failure to relieve pain, stiffness, infection, nerve damage, deep venous thrombosis, pulmonary embolism, stroke, coma, heart attack, permanent paralysis and , as well as the potential need for eventual revision of the prosthetic. Discharge Providers Primary care physician: Letitia Ibrahim MD Consults: 05/10/18 06:00 Consult to Anesthesiology Routine Comment: Consulting Provider: Anesthesiologist Reason for consultation: Regional block for post operative pain control 05/10/18 18:15 Consult to Discharge Planning Routine Comment: Consult to Physical Therapy Evaluate & Treat Comment: Physician Instructions: postop TKA protocol Consult to Respiratory Therapy Evaluate & Treat Comment: Physician Instructions: Evaluate and treat Discharge provider: Beena Simon PA-C Discharge Date: 05/13/18 Summary Discharge Diagnosis: s/p right total knee arthroplasty Thyroid disease Sleep apnea Rheumatoid arthritis Osteoporosis Interstitial lung disease Fibromyalgia Depression Back pain Asthma Arthritis Hospital Course: Patient admitted for right total knee arthroplasty with Dr. Cotto, and she consented to procedure. She was slow to recover in the hospital requiring SNF for continued care. On postop day 3. She was ready to transition to [facility]. She is eating and voiding without difficulty or assistance. She has been working with physical therapy throughout her stay. Status at Discharge Functional status at discharge: uses cane/walker Exam Vital Signs (past 8 hours): - 05/13/18 04:58 05/13/18 08:00 Temperature 98.4 F 97.8 F Pulse Rate 66 69 Respiratory Rate 15 16 Blood Pressure 108/50 L 91/54 L Pulse Oximetry 96 96 Fraction of Inspired Oxygen 21 Oxygen Delivery Method Room Air Oxygen Flow Rate 0 Narrative Exam Narrative: Patient lying in bed in no acute distress. She is not in any pain. She denies nausea or vomiting. Calves are soft, compressible, nontender bilaterally. Sensation intact light touch throughout bilateral lower extremities. She is able to actively dorsiflex plantar flex. Dressing in place. Objective Labs Result Diagrams: 05/11/18 04:42 Discharge Plan Discharge Plan Patient Disposition: SNF Transfer to: [facility] Under care of provider: Facility MD Transportation: Wheelchair Consult as needed: Dental, Hearing, Mental health, Podiatry and Vision Discharge comment: DC for continued care following right total knee arthroplasty I certify the postop hospital nursing home care is medically necessary on a continuing basis for any conditions for which he/ she received care during this hospitalization.: Yes The receiving facility has agreed to accept transfer and provide medical treatment.: Yes Discharge Med Rec/Prescriptions Prescriptions: New acetaminophen 325 mg Tablet 975 mg PO TID Qty: 60 RF: 0 polyethylene glycol 3350 17 gram Powder In Packet 17 gm PO DAILY PRN (Reason: Constipation) Qty: 60 RF: 0 aspirin 81 mg Tablet,Delayed Release (Dr/Ec) 81 mg PO BID Qty: 60 RF: 0 docusate sodium 100 mg Capsule 100 mg PO BID Qty: 60 RF: 0 oxycodone 5 mg capsule 5 mg PO Q4-6H PRN (Reason: pain) Qty: 60 RF: 0 dextroamphetamine-amphetamine [Adderall] 20 MG tablet 30 mg PO QAM Qty: 30 RF: 0 zolpidem [Ambien] 10 MG tablet 5 mg PO HS Qty: 30 RF: 0 Continue metformin [Glucophage XR] 500 MG tablet extended release 24 hr 500 mg OR BID Qty: 0 RF: 0 levothyroxine 175 MCG tablet 125 mcg PO QAM Qty: 0 RF: 0 risperidone [Risperdal] 1 MG tablet 0.5 mg PO QAM Qty: 0 RF: 0 adalimumab [Humira Pen Psoriasis-Uveitis] 40 MG/0.8 ML pen injector kit 40 mg SQ Q2W Qty: 0 RF: 0 hydroxychloroquine 200 MG tablet 2 tab PO BEDTIME Qty: 0 RF: 0 albuterol sulfate [Ventolin HFA] 90 MCG/PUFF HFA aerosol inhaler 2 puff INH Q4HP PRN (Reason: Interstitial rheumatoid lung ) Qty: 0 RF: 0 cholecalciferol (vitamin D3) [Vitamin D3] 4,000 UNIT capsule 4,000 u PO Q DAY Qty: 0 RF: 0 multivitamin [Multiple Vitamins] 1 EACH tablet 1 tab PO Q DAY Qty: 0 RF: 0 cyclobenzaprine 10 mg Tablet 10 mg PO QAM RF: 0 cyclobenzaprine 10 mg Tablet 20 mg PO BEDTIME RF: 0 prednisone 5 mg Tablet 15 mg PO DAILY RF: 0 risperidone 1 mg Tablet 1 mg PO BEDTIME RF: 0 bupropion HCl [Wellbutrin SR] 150 MG tablet extended release 12 hr 300 mg PO QDAY RF: 0 Discontinued hydrocodone-acetaminophen 5 MG/325 MG tablet 1 tab PO TID PRN (Reason: pain) Qty: 0 RF: 0 Follow up/Referrals: Areli Cotto MD [Physician] - (follow up in 5-7 days with [facility]) Discharge Orders: Discharge (Order); Ordered 05/13/18 Ordered By: Beena Simon Discharge Health Status Multidrug resistant organism: No MDRO Provider Discharge Instructions Diet: Diet as Tolerated Liquid consistency: Normal/Thin Food texture: Regular Cold/Heat Therapy: as needed Skin/Wound/Dressing Care Dressing: leave in place for 10-14 days Special Rehabilitation Services Reason for rehabilitation: Post-operative therapy Rehab type: Physical therapy and Occupational therapy Visit Report/Discharge Packet Instructions: DI for Knee Replacement Discharge Data Primary Care Provider: Letitia Ibrahim Attending Provider: Areli Cotto
[2018-05-13] MEDS: ACETAMINOPHEN 325 MG TABLET 975 MG PO (09:54)
[2018-05-13] MEDS: POLYETHYLENE GLYCOL 3350 17 GM POWD.PACK PO (09:54)
[2018-05-13] MEDS: risperiDONE 0.25 MG TABLET 0.5 MG PO (09:55)
[2018-05-13] MEDS: CYCLOBENZAPRINE 10 MG TABLET PO (09:55)
[2018-05-13] MEDS: ASPIRIN EC 81 MG TABLET PO (09:55)
[2018-05-13] MEDS: CHOLECALCIFEROL (VITAMIN D3) 1,000 UNIT TABLET 4000 UNIT PO (09:56)
[2018-05-13] MEDS: DOCUSATE 100 MG CAPSULE PO (09:56)
[2018-05-13] MEDS: buPROPion SR 150 MG TAB 300 MG PO (09:56)
[2018-05-13] MEDS: SODIUM CHLORIDE 0.9% FLUSH 10 ML IV (09:56)
[2018-05-13] MEDS: predniSONE 5 MG TABLET 15 MG PO (09:56)
[2018-05-13] MEDS: METFORMIN HCL 500 MG TABLET PO (09:56)
[2018-05-13] MEDS: Dextroamphetamine-Amphetamine 30 MG 30 EACH PO ×2 (10:01→10:04)
--- NOTE | 2018-05-13 10:58 | CM.DPC ---
Addendum entered by NEHEMIAH Kat 05/13/18 16:03: Pt remains aware and agreeable to VTP: [facility] for rehab. Updated PASSR completed this morning, per Moon lucero/ [facility] 's request. Included mental health history per Medical History Report to include PTSD, Bipolar disorder, eating disorder, anxiety/depression. Pt stable behaviorally on home medications and appropriate for Hospital Exempt PASSR, pt requires rehab s/p knee surgery, she does not need Mental Health treatment at SNF. Faxed updated and signed PASSR to Moon at [facility]. Transportation arranged by industrial hire sales assistant Josr at [facility]/ [facility] p/u for 1330, PRISCILLA Britt and pt made aware. MECCA Original Note: Clinicals, orders, etc faxed to [facility] per Yohana
[2018-05-13 12:00] VITALS: BP 95/59; PULSE 69; RESP 16; TEMP 36.7; O2SAT 93
[2018-05-13] MEDS: BISACODYL 10 MG SUPP PR (12:43)
--- NOTE | 2018-05-13 13:33 | PC.NURSE ---
dAY SHIFT: Report given to PRISCILLA Sousa at [facility]. Pt did have moderate sized BM post SUP. Also medicated Pt for pain prior to d/c. All of her personal belongings with her. Transport person Reed will drive Pt to [facility]. He also has Pts paperwork.
== END 2018-05-13 13:37 | DRG 470 ==
LOC: OR 12:07 → ICU 05-11 10:33 → AC 05-11 14:39 → ICU 04-10 13:57
PROVIDERS: Anesthesiology; Admitting Provider Orthopaedic Surgery; PCP Internal Medicine; Visit Provider Orthopaedic Surgery
PROC: 0SRC0JZ Replacement of Right Knee Joint with Synthetic Substitute, Open Approach (ICD-10-PCS; CPT 27447; principal; 2018-05-10 13:45)
DX: M17.11 Unilateral primary osteoarthritis, right knee (principal); M06.9 Rheumatoid arthritis, unspecified; E07.9 Disorder of thyroid, unspecified; G47.33 Obstructive sleep apnea (adult) (pediatric); M81.0 Age-related osteoporosis without current pathological fracture; J45.909 Unspecified asthma, uncomplicated; E11.9 Type 2 diabetes mellitus without complications; Z79.84 Long term (current) use of oral hypoglycemic drugs; J98.8 Other specified respiratory disorders
CPT/HCPCS: 36415; 64447; 73560; 82962; 85014; 85018; 85025; 87797; 93005; 94640; 94760; 97110; 97116; 97161; 97530; C1776; C9290; J0690; J1720; J2250; J2704; J3010; J3370; J7613

== ENCOUNTER → 2020-07-04 15:03 | Outpatient (CLI) | payer MEDICARE, MEDICAID, SELFPAY ==
[2018-05-10 17:46] VITALS: BMI 30.6
[2020-07-04 15:51] LABS: COVID19 -Nasal RAPID Negative (Negative)
== END ==
PROVIDERS: PCP Internal Medicine; Referring Provider Internal Medicine; Visit Provider Internal Medicine
DX: Z11.59 Encounter for screening for other viral diseases (principal)
CPT/HCPCS: 87635; C9803

== ENCOUNTER → 2020-07-05 15:30 | Outpatient (CLI) | payer MEDICARE, MEDICAID, SELFPAY ==
[2018-05-10 17:46] VITALS: BMI 30.6
--- NOTE | 2020-07-11 16:00 | PM.PFT.1 ---
Pulmonary Function Test Referral & Results Date Patient Seen: 07/05/20 Requesting provider: Javon Solano Indication: Lung damage Results: The spirometry demonstrates an FVC of 2.53 L which is 85% of predicted. The FEV1 was measured at 2.0 L which is a 9% of predicted. The FEV1/FVC ratio was 79 which is 103% of predicted. Following the administration of bronchodilator there was a 24% improvement in FEF 25-75% Lung volumes show an SVC of 2.47 L which is 87% of predicted. The diffusing capacity was measured at 15.26 which is 66% of predicted. No hemoglobin value was provided, so no correction for potential anemia could be made, if appropriate. The maximum voluntary ventilation was reduced Interpretation: This study demonstrates perhaps very mild obstructive lung disease based primarily on shape a flow volume loop and minimal improvement in small airway flow (FEF 25-75%) as above. This could also be considered normal spirometry. There is more notable reduction diffusing capacity unless patient is anemic Compared to PFTs performed in October 2017, current spirometry is essentially unchanged but diffusing capacity is notably different and diminished
== END ==
PROVIDERS: PCP Internal Medicine; Referring Provider Internal Medicine Critical Care Medicine; Visit Provider Internal Medicine Critical Care Medicine
DX: S27.309A Unspecified injury of lung, unspecified, initial encounter (principal); R06.02 Shortness of breath; J98.8 Other specified respiratory disorders; Z87.891 Personal history of nicotine dependence
CPT/HCPCS: 94060; 94726; 94729

== ENCOUNTER → 2021-02-17 14:16 | Outpatient (CLI) | payer MEDICARE, MEDICAID, SELFPAY ==
[2018-05-10 17:46] VITALS: BMI 30.6
== END ==
PROVIDERS: PCP Internal Medicine; Referring Provider Internal Medicine; Visit Provider Internal Medicine
DX: M54.5 Low back pain (principal); Z53.20 Procedure and treatment not carried out because of patient's decision for unspecified reasons

== ENCOUNTER → 2021-08-20 15:41 | Outpatient (CLI) | payer MEDICARE, MEDICAID, SELFPAY ==
[2018-05-10 17:46] VITALS: BMI 30.6
[2021-08-20 18:00] LABS: COVID19 -Nasal RAPID Negative (Negative)
== END ==
PROVIDERS: PCP Internal Medicine; Visit Provider Family Medicine Sleep Medicine
DX: Z20.822 Contact with and (suspected) exposure to COVID-19 (principal)
CPT/HCPCS: 87635; C9803

== ENCOUNTER → 2021-08-21 14:09 | Outpatient (CLI) | payer MEDICARE, MEDICAID, SELFPAY ==
[2018-05-10 17:46] VITALS: BMI 30.6
--- NOTE | 2021-08-21 | DI.NM.S_ITS ---
PROCEDURE: NM TRISTON PERF SPECT REST & STR Rest and pharmacological stress myocardial perfusion SPECT with gated imaging and ejection fraction RADIOPHARMACEUTICAL: 26.1 mCi Tc-99m tetrafosmin IV at rest and 25.4 mCi Tc-99m tetrafosmin IV at peak effect of pharmacological stress. Zne-ikc-uveepgue was performed. INDICATIONS: Essential (primary) hypertension TECHNIQUE: Radiopharmaceutical was injected at peak stress test, and also at rest. SPECT images were obtained. SPECT myocardial perfusion images were displayed in short axis, horizontal long axis, and vertical long axis views. Gated images were reviewed using Integrated Trade Processing software. COMPARISON: None. CARDIAC STRESS: A pharmacologic stress test was performed under the supervision of an attending staff, using an infusion of regadenoson. Hemodynamic data: There is normal blood pressure and heart rate response to pharmacologic stress. Symptoms: The patient denied anginal chest pain. EKG: No diagnostic changes of ischemia; no ectopy. FINDINGS: Raw data: There is good myocardial uptake of radiotracer. No significant motion artifacts. Ioup-qh-yznxl ratio is 0.48 (normal is less than 0.38 for tetrafosmin tracer). Left ventricle function: Gated images demonstrate normal left ventricular wall thickening. No segmental wall motion abnormalities. No transient ischemic dilation; TID is 0.34 (normal less than 1.3). Left ventricle resting end diastolic volume is 33 mL. Left ventricle stress ejection fraction is > 75%; normal range is above 45%. Myocardial perfusion: There is normal distribution of activity in the right and left ventricular myocardium. No fixed or reversible perfusion defects. IMPRESSION: 1. No evidence of pharmacologic induced ischemia or scar. 2. Small left ventricle with hyperdynamic function. Dictated by: Danielle Joshi D.O. on 08/22/2021 at 16:18 Approved by: Danielle Joshi M.D. on 08/22/2021 at 16:21
--- NOTE | 2021-08-22 15:05 | PM.TREADMILL ---
Cardiac Stress Test Report Referral & Results Date Patient Seen: 08/22/21 Time Patient Seen: 15:05 Requesting provider: Letitia Ibrahim Indication: Essential hypertension Rest ECG: Sinus rhythm with low voltage throughout Procedure Note: After Lexiscan injection had minimal dyspnea, no chest discomfort No significant ST changes after Lexiscan injection No ectopy Impression: Normal Lexiscan injection Please note: Actual ECG tracings can be found in the PACS system.
== END ==
PROVIDERS: PCP Internal Medicine; Referring Provider Internal Medicine; Visit Provider Internal Medicine
DX: R07.9 Chest pain, unspecified (principal); I10 Essential (primary) hypertension
CPT/HCPCS: 78452; 93017; A9502; J2785

== ENCOUNTER → 2021-09-08 15:04 | Outpatient (CLI) | payer MEDICARE, MEDICAID, SELFPAY ==
[2018-05-10 17:46] VITALS: BMI 30.6
--- NOTE | 2021-09-08 | DI.MG.S_ITS ---
BILATERAL DIGITAL SCREENING MAMMOGRAM 3D/2D WITH CAD: 09/08/2021 CLINICAL: Routine screening. No prior exams were available for comparison. There are scattered fibroglandular elements in both breasts. Current study was also evaluated with a Computer Aided Detection (CAD) system. There is a focal asymmetry in the right breast at 7 o'clock anterior depth. No other significant masses, calcifications, or other findings are seen in either breast. IMPRESSION: INCOMPLETE: NEEDS ADDITIONAL IMAGING EVALUATION The focal asymmetry in the right breast is indeterminate. Additional views with possible ultrasound are recommended. This exam was interpreted at Station ID: Unknown. NOTE: For mammograms, a report in lay terms will be sent to the patient. Approximately 15% of breast malignancies will not be visualized mammographically. In the management of a palpable breast mass, a negative mammogram must not discourage biopsy of a clinically suspicious lesion. Electronically Signed By: Rigo agarwal/kathrine:09/09/2021 10:19:20 Entry: - 09/09/2021 12:31:56 letter sent: Additional Imaging Needed ACR BI-RADS Category 0: Incomplete 3340F
--- NOTE | 2021-09-08 | DI.RAD.S_ITS ---
PROCEDURE: XR DEXA AXIAL SKELETON INDICATIONS: f/u osteoporosis treatment COMPARISON: None. FINDINGS: This blank DEXA report has been sent in error by the PACS system. The correct and complete report will be forthcoming in 1-2 days. Thank you for your patience and understanding. Dictated by: Alyssa Mccrary MD, PhD on 09/08/2021 at 16:49 Approved by: Alyssa Mccrary MD, PhD on 09/08/2021 at 16:50
== END ==
PROVIDERS: PCP Internal Medicine; Referring Provider Internal Medicine; Visit Provider Internal Medicine
DX: Z12.31 Encounter for screening mammogram for malignant neoplasm of breast (principal); M85.851 Other specified disorders of bone density and structure, right thigh; Z78.0 Asymptomatic menopausal state; M06.9 Rheumatoid arthritis, unspecified; Z82.62 Family history of osteoporosis; Z87.891 Personal history of nicotine dependence
CPT/HCPCS: 77063; 77067; 77080

== ENCOUNTER → 2021-12-12 12:59 | Outpatient (CLI) | payer MEDICARE, MEDICAID, SELFPAY ==
[2018-05-10 17:46] VITALS: BMI 30.6
[2021-12-12 14:12] LABS: COVID19 -Nasal RAPID Negative (Negative)
== END ==
PROVIDERS: PCP Internal Medicine; Referring Provider Internal Medicine; Visit Provider Internal Medicine
DX: Z20.822 Contact with and (suspected) exposure to COVID-19 (principal)
CPT/HCPCS: 87635; C9803

== ENCOUNTER → 2022-01-19 13:24 | Outpatient (CLI) | payer MEDICARE, MEDICAID, SELFPAY ==
[2018-05-10 17:46] VITALS: BMI 30.6
--- NOTE | 2022-01-19 | DI.MG.S_ITS ---
UNILATERAL RIGHT DIGITAL DIAGNOSTIC MAMMOGRAM 3D/2D WITH ADDITIONAL VIEWS: 01/19/2022 CLINICAL: Additional evaluation requested from prior study. Comparison is made to exam dated: 09/08/2021 mammogram - [facility]. There are scattered fibroglandular elements in right breast. There is a 0.6 cm oval equal density focal asymmetry in the right breast central to the nipple middle depth. There also is a 1.7 cm oval asymmetry in the right breast at 7 o'clock middle depth. No other significant masses or calcifications are seen in the breast. IMPRESSION: INCOMPLETE: NEEDS ADDITIONAL IMAGING EVALUATION The 0.6 cm oval equal density focal asymmetry in the right breast central to the nipple middle depth resembles a cyst or a lymph node and is indeterminate. An ultrasound is recommended for further evaluation and is scheduled to immediately follow this examination. The 1.7 cm oval asymmetry in the right breast at 7 o'clock middle depth most likely is a cyst or a lymph node and is indeterminate. An ultrasound is recommended for further evaluation and is scheduled to immediately follow this examination. This exam was interpreted at Station ID: [id number]. NOTE: For mammograms, a report in lay terms will be sent to the patient. Approximately 15% of breast malignancies will not be visualized mammographically. In the management of a palpable breast mass, a negative mammogram must not discourage biopsy of a clinically suspicious lesion. Electronically Signed By: Los Brito M.D. aty/:01/19/2022 16:00:36 ACR BI-RADS Category 0: Incomplete 3340F
--- NOTE | 2022-01-19 | DI.US.S_ITS ---
ULTRASOUND OF RIGHT BREAST AND AXILLA: 01/19/2022 CLINICAL: Patient returns today to evaluate an asymmetry in the right breast. Comparison is made to exams dated: 01/19/2022 mammogram and 09/08/2021 mammogram - [facility]. Color flow and real-time ultrasound of the right breast axilla were performed. [place] scale images of the real-time examination were reviewed. There is a 1.7 cm x 0.6 cm x 0.8 cm wider than tall oval mass with a few angular margins in the right breast at 7 o'clock anterior depth 4 cm from the nipple. This oval mass is hypoechoic with no posterior acoustic shadowing or enhancement. This correlates with mammography findings. Color flow imaging demonstrates that there is an adjacent vascularity. There also is a 1.3 cm x 0.3 cm x 0.6 cm wider than tall oval mass in the right breast at 9 o'clock middle depth 2 cm from the nipple. This oval mass is hypoechoic with a well-defined boundary. This may or may not correlate with mammography findings. Color flow imaging demonstrates that there is no vascularity present. No significant abnormalities were seen sonographically in the right axilla. IMPRESSION: SUSPICIOUS OF MALIGNANCY The 1.7 cm x 0.6 cm x 0.8 cm wider than tall oval mass in the right breast at 7 o'clock anterior depth resembles a solid mass or a fibroadenoma but is at a low suspicion for malignancy. An ultrasound guided biopsy is recommended. The 1.3 cm x 0.3 cm x 0.6 cm wider than tall oval mass in the right breast at 9 o'clock middle depth resembles a lymph node or a fibroadenoma and is probably benign. A follow up right mammogram and ultrasound in 6 months is recommended to document stability. There is no abnormality seen in the right breast to correspond with the mammography finding at 12 o'clock which likely represents normal fibroglandular tissue. Findings and recommendations were discussed with the patient by Dr. Mccrary during today's examination. This exam was interpreted at Station ID: [id number]. Electronically Signed By: Los Brito M.D. aty/:01/19/2022 16:14:06 letter sent: Biopsy Required Ultrasound BI-RADS: 4a Low suspicion for malignancy
== END ==
PROVIDERS: PCP Internal Medicine; Referring Provider Internal Medicine; Visit Provider Internal Medicine
DX: R92.8 Other abnormal and inconclusive findings on diagnostic imaging of breast (principal); N63.13 Unspecified lump in the right breast, lower outer quadrant; N63.15 Unspecified lump in the right breast, overlapping quadrants
CPT/HCPCS: 76642; 77065; G0279

== ENCOUNTER → 2022-02-19 12:59 | Outpatient (CLI) | payer MEDICARE, MEDICAID, SELFPAY ==
[2018-05-10 17:46] VITALS: BMI 30.6
[2022-02-19 13:41] LABS: COVID19 -Nasal RAPID Negative (Negative)
== END ==
PROVIDERS: PCP Internal Medicine; Referring Provider Internal Medicine; Visit Provider Internal Medicine
DX: Z20.822 Contact with and (suspected) exposure to COVID-19 (principal)
CPT/HCPCS: 87635; C9803

== ENCOUNTER → 2022-02-19 13:02 | Outpatient (CLI) | payer MEDICARE, MEDICAID, SELFPAY ==
[2018-05-10 17:46] VITALS: BMI 30.6
--- NOTE | 2022-02-25 10:56 | PM.PFT.1 ---
Pulmonary Function Test Referral & Results Date Patient Seen: 02/19/22 Requesting provider: Javon Solano Results: The spirometry demonstrates an FVC of 2.46 L which is 86% of predicted. The FEV1 was measured at 1.96 L which is 90% of predicted. The FEV1/FVC ratio was 80 which is 104% of predicted. Following the administration of bronchodilator there was no appreciable change. Lung volumes show an SVC of 2.40 L which is 87% of predicted. The diffusing capacity was measured at 15.28 which is 66% of predicted. No hemoglobin value was provided, so no correction for potential anemia could be made, if appropriate. The maximum voluntary ventilation was minimally reduced Interpretation: This study demonstrates normal spirometry There is a qals-ph-gncrvuln reduction in diffusing capacity suggesting the presence of disease at the capillary alveolar level There may also be a very minimal reduction in maximum voluntary ventilation which in the absence of abnormalities of spirometry suggest the possibility of neuromuscular disease Compared to PFTs performed in July 2020, current study is essentially unchanged Clinical correlation suggested
== END ==
PROVIDERS: PCP Internal Medicine; Referring Provider Internal Medicine Critical Care Medicine; Visit Provider Internal Medicine Critical Care Medicine
DX: R84.9 Unspecified abnormal finding in specimens from respiratory organs and thorax (principal); R06.02 Shortness of breath; J84.170 Interstitial lung disease with progressive fibrotic phenotype in diseases classified elsewhere; Z20.822 Contact with and (suspected) exposure to COVID-19; J98.8 Other specified respiratory disorders
CPT/HCPCS: 87635; 94060; 94726; 94729; C9803

== ENCOUNTER → 2022-02-20 12:42 | Outpatient (CLI) | payer MEDICARE, MEDICAID, SELFPAY ==
[2018-05-10 17:46] VITALS: BMI 30.6
--- NOTE | 2022-02-20 | DI.US.S_ITS ---
ULTRASOUND GUIDED BIOPSY RIGHT BREAST USING VACUUM DEVICE WITH MARKING DEVICE INSERTED AND POST MAMMOGRAPHIC IMAGIN02/20/2022 CLINICAL: Right breast mass. PATIENT CONSENT: Risks (minor bleeding, infection, vasovagal reaction and repeat procedure), benefits and alternatives were explained to the patient and written informed consent was obtained. No prior exams were available for correlation. An ultrasound guided biopsy using real-time ultrasound was performed for the 1.7 cm x 0.6 cm x 0.8 cm oval mass located in the right breast at 7 o'clock anterior depth 4 cm from the nipple. This was described on the previous mammography and ultrasound reports. The skin was prepped in the usual manner. Local anesthetic was administered to the access site. A skin darby was made in the breast. The abnormality was approached from the lateral aspect. A 13 gauge biopsy needle was placed adjacent to the abnormality under ultrasound guidance. Once the needle was documented to be in the correct location, five specimens were obtained using the Mammotome biopsy system. A clip was inserted into the biopsy cavity. A sterile dressing was applied to the access site. Post procedure mammographic imaging demonstrates the location device at the targeted area. The specimens were sent to the laboratory for pathological analysis. IMPRESSION: ULTRASOUND GUIDED BIOPSY BENIGN Ultrasound guided biopsy of the 1.7 cm x 0.6 cm x 0.8 cm mass in the right breast at 7 o'clock anterior depth 4 cm from the nipple was successful. Pathology indicates benign fibroadenoma (FA). Pathology results are concordant with imaging findings. Return to annual mammogram screening schedule is recommended. This exam was interpreted at Station ID: [id number]. Los estrada,acr/:02/24/2022 11:04:31
--- NOTE | 2022-02-20 | DI.MG.S_ITS ---
UNILATERAL RIGHT DIGITAL DIAGNOSTIC MAMMOGRAM 3D/2D: 02/20/2022 CLINICAL: Right post clip. Comparison is made to exams dated: 01/19/2022 ultrasound, 01/19/2022 mammogram, and 09/08/2021 mammogram - [facility]. There are scattered fibroglandular elements in right breast. There is a marker clip in the appropriate position in the right breast at 7 o'clock anterior depth 4 cm from the nipple. This correlates with ultrasound findings and the biopsy. IMPRESSION: POST PROCEDURE MAMMOGRAM FOR MARKER PLACEMENT There was a successful marker clip placement in the right breast anterior depth. Based on the Tyrer Cuzick model (a risk assessment model) the patient's lifetime risk is 5.2% and her 10 year risk is 3.3%. According to the ACR, ACS, and NCCN guidelines, an annual breast MRI exam along with mammogram is recommended if the patient's lifetime risk is 20% or greater. This exam was interpreted at Station ID: [id number]. NOTE: For mammograms, a report in lay terms will be sent to the patient. Approximately 15% of breast malignancies will not be visualized mammographically. In the management of a palpable breast mass, a negative mammogram must not discourage biopsy of a clinically suspicious lesion. Electronically Signed By: Los Brito M.D. aty/:02/20/2022 15:01:02 ACR BI-RADS Category Post-procedure mammogram for marker placement
--- NOTE | 2022-02-20 | PATH_ITS ---
[facility] Accession Number: [id number] . 01 Material submitted: . breast - RIGHT BREAST 7:00 . 01 Diagnosis: A. Right Breast, 7 o'clock, Biopsy: Fibroadenoma. Background breast parenchyma with apocrine metaplasia and microcystic change. Negative for atypia, carcinoma in situ, and malignancy. MRV 02/23/2022 1157 Local . 01 Electronically signed: . Tanvi Brown MD, Pathologist NPI- [id number] . 01 Gross description: . Received one formalin-filled container, labeled with the patient's name and right breast 7 o'clock. The specimen is received with a plastic filter in container, sample loose in container and consists of multiple light arguelles, rough portions of tissue which range in size from 0.7 x 0.5 x 0.4 cm to 1.1 x 0.3 x 0.3 cm. The specimen is entirely submitted in one cassette. Possible collection date and time per requisition: 02/20/22 at 14:46. Total fixation time: Approximately 36 hours. ([id number]) /[facility] 02/21/2022 1041 Local . 01 Pathologist provided ICD-10: N63.0 . 01 CPT . 290344 Specimen Comment: A courtesy copy of this report has been sent to [phone] Performed at: 01 [facility] [address] [place] [address], [place], [place] [id number] MD Michael Castaneda MD Phone: [phone]
== END ==
PROVIDERS: PCP Internal Medicine; Referring Provider Internal Medicine; Visit Provider Internal Medicine
DX: D24.1 Benign neoplasm of right breast (principal)
CPT/HCPCS: 19083; 77065

== ENCOUNTER → 2022-05-25 16:00 | Outpatient (CLI) | payer MEDICARE, MEDICAID, SELFPAY ==
[2018-05-10 17:46] VITALS: BMI 30.6
--- NOTE | 2022-05-25 16:01 | DI.ECHO.S_ITS ---
[facility] +---------+ : : [address] : [address] : : : : [phone] : : : : Phone: [phone]---------+ Echocardiogram Report + + :Name: MILDRED WOOD Study Date: 05/25/2022 Height: 62 in : :[facility] ReadingLocation: Weight: 200 lb : : Gender: Female BSA: 1.9 m2 : :: 1950 Age: 71 yrs BP: 133/94 mmHg: :Reason For Study: DYSPNEA ON EXERTION : :Ordering Physician: RILEY, : :ANIRUDH Performed By: Nery Gutierrez : :Referring: ANIRUDH LIN : + + Interpretation Summary The left ventricular cavity is small. The left ventricle is hyperdynamic. The ejection fraction is estimated to be 70-75%. There are no focal wall motion abnormalities. 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 The right ventricle is normal size. The right ventricular systolic function is normal. Pulmonary artery pressures cannot be estimated because of the lack of a measurable TR jet velocity. The left atrial size is normal. Right atrial size is normal. There is no significant valvular heart disease. The aortic root is normal size. Overall, the LV cavity apears smaller comparing to prior echo study on 10/29/2017. Consider rate control medications and IVFs since it appears the LV cavity appears to be underfilled. Procedure: A two-dimensional transthoracic echocardiogram with color flow and Doppler was performed. The study quality was technically difficult. Comparison is made with the echocardiogram of 10/29/2017. The patient was in sinus tachycardia with heart rates between 84-110 bpm during the exam. Left Ventricle: The left ventricular cavity is small. There is normal left ventricular wall thickness. The LV cavity appears to be under filled. 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 The left ventricle is hyperdynamic. The ejection fraction is estimated to be 70-75%. There are no focal wall motion abnormalities. Right Ventricle: The right ventricle is normal size. The right ventricular systolic function is normal. Atria: The left atrial size is normal. Right atrial size is normal. There is no Doppler evidence for an interatrial shunt. Mitral Valve: The mitral valve is normal in structure and function. There is no mitral regurgitation noted. Aortic Valve: The aortic valve is not well visualized. The aortic valve opens well. There is no aortic valve stenosis. There is trace aortic regurgitation. Tricuspid Valve: The tricuspid valve is normal in structure and function. There is trace tricuspid regurgitation. Pulmonary artery pressures cannot be estimated because of the lack of a measurable TR jet velocity. Pulmonic Valve: The pulmonic valve is not well seen, but is grossly normal. There is no pulmonic valvular regurgitation. There is no significant valvular heart disease. Great Vessels: The aortic root is normal size. The dimensions of the ascending aorta are normal. The IVC is of normal diameter and collapses greater than 50% with a sniff. This suggests a low right atrial pressure of 3 mm Hg. Pericardium/ Pleura There is no pericardial effusion. There is no pleural effusion. MMode/2D Measurements & Calculations LVIDd: 4.5 cm LVOT diam: 2.0 cm LVIDs: 3.2 cm Ao root diam: 3.3 cm FS: 27.9 % asc Aorta Diam: 3.7 cm IVSd: 0.93 cm Ao Arch Diam (Prox Trans): 3.2 cm LVPWd: 1.00 cm LV roblero. diameter/BSA (cm/m^2): 2.3 LV sys. diameter/BSA (cm/m^2): 1.7 LA A2 area: 14.5 cm2 RA long axis: 4.9 cm LA A4 area: 11.5 cm2 RA area: 12.6 cm2 LA length (vol): 4.6 cm RA vol: 27.6 ml LA vol: 30.5 ml RA : 14.5 ml/m2 LA vol index: 16.0 ml/m2 IVC diam: 1.7 cm RVD1 (basal): 2.6 cm RVD2 (mid): 2.3 cm TAPSE: 2.0 cm Doppler Measurements & Calculations Ao V2 max: 143.1 cm/sec LVOT Max Rahul: 106.4 cm/sec Ao V2 mean: 104.3 cm/sec LV V1 max P.5 mmHg Ao max P.2 mmHg LV V1 VTI: 19.9 cm Ao mean P.7 mmHg DESMOND(I,D): 2.7 cm2 Ao V2 VTI: 22.3 cm DESMOND(V,D): 2.3 cm2 sev ratio: 0.89 DESMOND indexed to BSA (cm^2/m^2): 1.4 Med Peak E' Rahul: 7.3 cm/sec PA V2 max: 86.6 cm/sec Lat Peak E' Rahul: 8.2 cm/sec PA V2 mean: 65.9 cm/sec PA mean P.9 mmHg PA pr(Accel): 35.3 mmHg SV(LVOT): 61.1 ml Reading Physician:09:24 AM
== END ==
PROVIDERS: PCP Internal Medicine; Referring Provider Internal Medicine; Visit Provider Internal Medicine
DX: R06.09 Other forms of dyspnea (principal)
CPT/HCPCS: 93306

== ENCOUNTER → 2022-09-22 13:29 | Outpatient (CLI) | payer MEDICARE, MEDICAID, SELFPAY ==
[2018-05-10 17:46] VITALS: BMI 30.6
--- NOTE | 2022-09-22 | DI.ECHO.S_ITS ---
[place] [facility]---------+ [facility] +---------+ : : [address] : : : : [phone] : : : : Phone: [phone]+ Echocardiogram Report + + :Name: MILDRED WOOD Study Date: 09/22/2022 Height: 61.5 in: :[facility] ReadingLocation: Weight: 199 lb : : Gender: Female BSA: 1.9 m2 : :: 1950 Age: 71 yrs BP: 118/80 mmHg: :Reason For Study: DYSPNEA : :Ordering Physician: RILEY, : :ANIRUDH Performed By: Nery Gutierrez : :Referring: ANIRUDH LIN : + + Interpretation Summary Left ventricular wall thickness is borderline increased. The ejection fraction is estimated to be 70-75%. The left ventricle is hyperdynamic. Procedure: Images were not obtained from all of the standard acoustic windows due to the limited scope of the study. Comparison is made with the echocardiogram of 05/25/2022. The study quality was technically difficult. The patient was in sinus rhythm with heart rates between 80-90 bpm during the exam. Left Ventricle: The left ventricular cavity is small. Left ventricular wall thickness is borderline increased. The ejection fraction is estimated to be 70-75%. The left ventricle is hyperdynamic. Mitral Valve: The mitral valve chordae are thickened and/or calcified. Great Vessels: The inferior vena cava was not well visualized. Pericardium/ Pleura There is no pericardial effusion. There is no pleural effusion. MMode/2D Measurements & Calculations LVIDd: 4.4 cm LVOT diam: 2.0 cm LVIDs: 2.6 cm FS: 40.2 % IVSd: 1.1 cm LVPWd: 0.95 cm LV roblero. diameter/BSA (cm/m^2): 2.3 LV sys. diameter/BSA (cm/m^2): 1.4 Doppler Measurements & Calculations Ao V2 max: 136.9 cm/sec LVOT Max Rahul: 114.6 cm/sec Ao V2 mean: 109.5 cm/sec LV V1 max P.3 mmHg Ao max P.5 mmHg LV V1 VTI: 23.2 cm Ao mean P.0 mmHg DESMOND(I,D): 2.3 cm2 Ao V2 VTI: 30.0 cm DESMOND(V,D): 2.5 cm2 sev ratio: 0.77 DESMOND indexed to BSA (cm^2/m^2): 1.2 SV(LVOT): 70.3 ml Reading Physician:09:36 AM
== END ==
PROVIDERS: PCP Internal Medicine; Referring Provider Internal Medicine; Visit Provider Internal Medicine
DX: R06.02 Shortness of breath (principal)
CPT/HCPCS: 93307

== ENCOUNTER → 2023-03-23 14:26 | Outpatient (CLI) | payer MEDICARE, MEDICAID, SELFPAY ==
[2018-05-10 17:46] VITALS: BMI 30.6
--- NOTE | 2023-03-23 | DI.MG.S_ITS ---
BILATERAL DIGITAL SCREENING MAMMOGRAM 3D/2D WITH CAD: 03/23/2023 CLINICAL: Routine screening. Comparison is made to exams dated: 02/20/2022 mammogram, 01/19/2022 mammogram, and 09/08/2021 mammogram - [facility]. There are scattered areas of fibroglandular density in both breasts (category b / 25%-50% glandular tissue). Current study was also evaluated with a Computer Aided Detection (CAD) system. There are benign calcifications in both breasts. There also is a biopsy clip in the right breast. No significant masses, calcifications, or other findings are seen in either breast. There has been no significant interval change. IMPRESSION: BENIGN There is no mammographic evidence of malignancy. A 1 year screening mammogram is recommended. Based on the Tyrer Cuzick model (a risk assessment model) the patient's lifetime risk is 4.9% and her 10 year risk is 3.3%. According to the ACR, ACS, and NCCN guidelines, an annual breast MRI exam along with mammogram is recommended if the patient's lifetime risk is 20% or greater. This exam was interpreted at Station ID: [id number]. NOTE: For mammograms, a report in lay terms will be sent to the patient. Approximately 15% of breast malignancies will not be visualized mammographically. In the management of a palpable breast mass, a negative mammogram must not discourage biopsy of a clinically suspicious lesion. Electronically Signed By: [place] rincon/kathrine:03/23/2023 17:46:53 letter sent: Normal Exam ACR BI-RADS Category 2: Benign Finding(s) 3342F
== END ==
PROVIDERS: PCP Internal Medicine; Referring Provider Internal Medicine; Visit Provider Internal Medicine
DX: Z12.31 Encounter for screening mammogram for malignant neoplasm of breast (principal)
CPT/HCPCS: 77063; 77067

== ENCOUNTER → 2023-04-19 13:42 | Outpatient (CLI) | payer MEDICARE, MEDICAID, SELFPAY ==
[2018-05-10 17:46] VITALS: BMI 30.6
--- NOTE | 2023-04-19 13:43 | DI.CT.S_ITS ---
PROCEDURE: CT CHEST HIGH RESOLUTION INDICATIONS: History of autoimmune associated interstitial lung disease, TECHNIQUE: Noncontrast 1.0 and 5.0 mm thick contiguous axial sections from the pulmonary apex to the posterior costophrenic angles, with 7 mm thick coronal and sagittal MIP reformats. 1 mm thick dynamic expiratory images acquired through the upper, mid, and lower lungs. 1.0 mm thick axial sections acquired from the kvng to the posterior costophrenic angles in the prone end-inspiration position. For radiation dose reduction, the following was used: automated exposure control, adjustment of mA and/or kV according to patient size. COMPARISON: [facility], CT, CHEST HIGH RESOLUTION, 07/09/2016, 10:11. FINDINGS: Lungs and pleura: Bilateral peripheral reticular opacities, honeycombing, traction bronchiectasis redemonstrated , most pronounced at the mid and upper lungs. Compared to the prior exam, there has been mild-moderate worsening. No substantial ground-glass opacity present. A few small pulmonary nodules are present, without definite pattern demonstrated, for example a 4 mm right middle lobe nodule (2/129), new. No definite air trapping. No pleural effusion. Mediastinum: No pericardial effusion. The main pulmonary artery is enlarged measuring 3.6 cm. Esophagus is normal in caliber. Bones and chest wall: Multilevel degenerative change of the visualized spine. Abdomen: Prior cholecystectomy. IMPRESSION: 1. Interval worsening of findings of interstitial lung disease since the prior exam. 2. A few small pulmonary nodules are present, nonspecific. If the patient is considered low risk, imaging follow-up is not necessary per Fleischner society guidelines. If the patient is considered high risk, an optional 12 month follow-up chest CT could be obtained. 3. Enlargement of the main pulmonary artery, a finding which can be seen in the setting of pulmonary hypertension. Dictated by: Rigo Alanis M.D. on 04/20/2023 at 10:44 Approved by: Rigo Alanis M.D. on 04/20/2023 at 11:14
== END ==
PROVIDERS: PCP Internal Medicine; Referring Provider Internal Medicine Critical Care Medicine; Visit Provider Internal Medicine Critical Care Medicine
DX: J84.9 Interstitial pulmonary disease, unspecified (principal); R91.8 Other nonspecific abnormal finding of lung field; I77.89 Other specified disorders of arteries and arterioles; Z90.49 Acquired absence of other specified parts of digestive tract
CPT/HCPCS: 71250

== ENCOUNTER → 2023-07-15 14:50 | Outpatient (CLI) | payer MEDICARE, MEDICAID, SELFPAY ==
[2018-05-10 17:46] VITALS: BMI 30.6
--- NOTE | 2023-07-15 14:55 | DI.RAD.S_ITS ---
PROCEDURE: XR THORACIC SPINE 2V INDICATIONS: upper and mid back pain TECHNIQUE: 2 views of the thoracic spine were acquired. COMPARISON: [facility], CT, CT CHEST HIGH RESOLUTION, 04/19/2023, 13:59. FINDINGS: Bones: No fractures or dislocations. No suspicious bony lesions. Mild lumbar scoliosis. 12 pairs of ribs are noted, and appear intact where visualized. Soft tissues: No paravertebral stripe thickening. Cholecystectomy clips. IMPRESSION: No acute bony abnormality. Mild degenerative changes. Dictated by: Terrance Rodriguez M.D. on 07/15/2023 at 19:16 Approved by: Terrance Rodriguez M.D. on 07/15/2023 at 19:18
== END ==
PROVIDERS: PCP Internal Medicine; Referring Provider Internal Medicine; Visit Provider Internal Medicine
DX: M47.814 Spondylosis without myelopathy or radiculopathy, thoracic region (principal); M54.6 Pain in thoracic spine; G89.29 Other chronic pain
CPT/HCPCS: 72070

== ENCOUNTER → 2024-08-22 15:06 | Outpatient (CLI) | payer MEDICARE, MEDICAID, SELFPAY ==
[2018-05-10 17:46] VITALS: BMI 30.6
--- NOTE | 2024-08-22 15:08 | DI.RAD.S_ITS ---
PROCEDURE: XR DEXA AXIAL SKELETON INDICATIONS: Age-related osteoporosis without current pathologi COMPARISON: [facility], , XR DEXA AXIAL SKELETON, 09/08/2021, 15:39. FINDINGS: Lumbar Spine: Bone mineral density 0.995 g/cm2, T score -0.5, previously -0.9. Left Femoral Neck: Bone mineral density 0.871 g/cm2, T score -0.6. Left Hip: Bone mineral density 0.729 g/cm2, T score -1.1, unchanged. Fracture Risk Calculation (when applicable): 10-year fracture risk of a major osteoporotic fracture 11 percent and of a hip fracture 1.6 percent. (T score greater or equal to -1.0 to: NORMAL) (T score from -1.1 to -2.4: OSTEOPENIA) (T score less than or equal to -2.5: OSTEOPOROSIS) IMPRESSION: Osteopenia. Follow-up guidelines as follows: Osteoporosis: Consider a repeat DEXA and Vertebral Fracture Assessment (VFA) exam in 2 years or sooner if medically necessary, to reassess this patient's status. Osteopenia: Consider a repeat DEXA in 2-3 years to reassess this patient's status, or if there is a new clinical indication. Normal: Consider a repeat DEXA in 5 years or sooner, or if there is a new clinical indication. All treatment decisions require clinical judgment and consideration of individual patient factors, including patient preferences, comorbidities, previous drug use, risk factors not captured in the FRAX model (e.g., frailty, falls, vitamin D deficiency, increased bone turnover, interval significant decline in bone density ) and possible under- or over-estimation of fracture risk by FRAX. In addition, the NOF Guide recommends that FDA-approved medical therapies be considered in postmenopausal women and men age >= 50 years with a: * Hip or vertebral (clinical or morphometric) fracture * T-score of <=-2.5 at the spine or hip * Ten-year fracture probability by FRAX of >= 3% for hip fracture or >=20% for major osteoporotic fracture. Dictated by: Miguel Fritz M.D. on 08/22/2024 at 17:13 Approved by: Miguel Fritz M.D. on 08/22/2024 at 17:14
== END ==
PROVIDERS: PCP Internal Medicine; Referring Provider Internal Medicine; Visit Provider Internal Medicine
DX: M81.0 Age-related osteoporosis without current pathological fracture (principal); M85.88 Other specified disorders of bone density and structure, other site
CPT/HCPCS: 77080

== ENCOUNTER → 2025-01-08 14:15 | Outpatient (CLI) | payer MEDICARE, MEDICAID, SELFPAY ==
[2018-05-10 17:46] VITALS: BMI 30.6
--- NOTE | 2025-01-08 14:30 | DI.CT.S_ITS ---
PROCEDURE: CT CHEST HIGH RESOLUTION INDICATIONS: H/o ILD, eval for change TECHNIQUE: Noncontrast 1.0 and 5.0 mm thick contiguous axial sections from the pulmonary apex to the posterior costophrenic angles, with 7 mm thick coronal and sagittal MIP reformats. 1 mm thick dynamic expiratory images acquired through the upper, mid, and lower lungs. 1.0 mm thick axial sections acquired from the kvng to the posterior costophrenic angles in the prone end-inspiration position. For radiation dose reduction, the following was used: automated exposure control, adjustment of mA and/or kV according to patient size. COMPARISON: [facility], CT, CT CHEST HIGH RESOLUTION, 04/19/2023, 13:59. FINDINGS: Image quality: Diagnostic. Lower Neck: No enlarged lymph nodes. Thyroid: Not visualized. Axillae: No enlarged lymph nodes. Chest Wall: Unremarkable. Bones: Unremarkable. Lungs and Pleura: Apical predominant peripheral reticulation, with significant volume loss in the right upper lobe. Honeycombing is present. No ground-glass. Stable 3-4 millimeter solid nodule, anterior right middle lobe (series 2, image 111). No significant air trapping. No significant progression from prior. Heart: Heart size is normal. No pericardial effusion. Two vessel coronary calcifications. Thoracic Vessels: Dilated main pulmonary artery at 4 centimeter. Mediastinum and Gloria: No enlarged lymph nodes. Esophagus: No wall thickening. No hiatal hernia. Upper Abdomen: Partially visualized right renal cystic lesion. IMPRESSION: No significant progression of apical predominant interstitial lung disease. CT pattern inconsistent with UIP given upper lobe distribution. Pulmonary hypertension. Stable 3-4 millimeter solid nodule in the right middle lobe. Dictated by: Miguel Fritz M.D. on 01/09/2025 at 11:55 Approved by: Miguel Fritz M.D. on 01/09/2025 at 12:00
== END ==
PROVIDERS: Family Provider Internal Medicine; PCP Internal Medicine; Referring Provider Internal Medicine Critical Care Medicine; Visit Provider Internal Medicine Critical Care Medicine
DX: J84.9 Interstitial pulmonary disease, unspecified (principal); I27.20 Pulmonary hypertension, unspecified; I25.10 Atherosclerotic heart disease of native coronary artery without angina pectoris; R91.1 Solitary pulmonary nodule
CPT/HCPCS: 71250

== ENCOUNTER → 2025-01-15 15:03 | Outpatient (CLI) | payer MEDICARE, MEDICAID, SELFPAY ==
[2018-05-10 17:46] VITALS: BMI 30.6
--- NOTE | 2025-01-15 15:10 | DI.RAD.S_ITS ---
PROCEDURE: XR THORACIC SPINE 2V INDICATIONS: Pain in thoracic spine TECHNIQUE: 3 views of the thoracic spine were acquired. COMPARISON: [facility], CR, XR THORACIC SPINE 2V, 07/15/2023, 14:59. FINDINGS: Thoracic spine curvature and alignment: Slight left curve lower thoracic upper lumbar spine appreciated Bones: Mild chronic wedging upper midthoracic vertebral bodies noted. Disc spaces: Severe degenerative disc disease seen in the midthoracic spine with mild degenerative disc disease in the remaining thoracic levels Soft tissues: Moderate calcific plaque left carotid artery region IMPRESSION: Chronic findings-stable since 2022 Calcific plaque in the location left carotid artery. Please correlate with bruit Dictated by: Neel Fisher M.D. on 01/16/2025 at 11:54 Approved by: Neel Fisher M.D. on 01/16/2025 at 11:56
== END ==
LOC: RAD 15:08
PROVIDERS: Family Provider Internal Medicine; PCP Internal Medicine; Referring Provider Internal Medicine; Visit Provider Internal Medicine
DX: M51.34 Other intervertebral disc degeneration, thoracic region (principal); I65.22 Occlusion and stenosis of left carotid artery
CPT/HCPCS: 72070

== ENCOUNTER → 2025-01-15 16:03 | Outpatient (CLI) | payer MEDICARE, MEDICAID, SELFPAY ==
[2018-05-10 17:46] VITALS: BMI 30.6
== END ==
LOC: RESP 16:04
PROVIDERS: Family Provider Internal Medicine; PCP Internal Medicine; Referring Provider Internal Medicine Critical Care Medicine; Visit Provider Internal Medicine Critical Care Medicine
DX: R06.09 Other forms of dyspnea (principal); F17.290 Nicotine dependence, other tobacco product, uncomplicated; R94.2 Abnormal results of pulmonary function studies
CPT/HCPCS: 72070; 94060; 94726; 94729

== ENCOUNTER 2025-01-18 12:03 | Day surgery (SDC) | payer MEDICARE, MEDICAID, SELFPAY ==
[2018-05-10 17:46] VITALS: BMI 30.6
--- NOTE | 2025-01-18 | PATH_ITS ---
[facility] Accession Number: [id number] No. of containers..04 Tissue . 01 Material submitted: . PART A: colon - COLON, ASCENDING POLYP PART B: colon - COLON, TRANSVERSE POLYP PART C: colon - COLON, DESCENDING POLYPS PART D: colon - COLON, SIGMOID POLYP . 01 Diagnosis: Part A: COLON, ASCENDING POLYP: Tubular adenoma. . Part B: COLON, TRANSVERSE POLYP: Tubular adenoma. . Part C: COLON, DESCENDING POLYPS: Tubular adenomas. . Part D: COLON, SIGMOID POLYP: Tubular adenoma. [facility] 01/25/2025 [facility]3 Local . 01 Electronically signed: . Michael Castaneda MD, Pathologist NPI- [id number] . 01 Gross description: . Part A: COLON, ASCENDING POLYP: Received in formalin are multiple fragment of mascorro soft tissue measuring 1.0 x 1.0 x 0.6 cm in aggregate. Specimen is sectioned and submitted in its entirety in 2 cassettes. . Part B: COLON, TRANSVERSE POLYP: Received in formalin are 2 fragment(s) of mascorro, soft tissue measuring 0.1 x 0.1 x 0.1 cm to 0.2 x 0.2 x 0.1 cm submitted entirely in 1 cassette(s) . Part C: COLON, DESCENDING POLYPS: Received in formalin are 4 fragment(s) of mascorro, soft tissue measuring 0.1 x 0.1 x 0.1 cm to 0.7 x 0.4 x 0.4 cm submitted entirely in 1 cassette(s) . Part D: COLON, SIGMOID POLYP: Received in formalin is 1 fragment(s) of mascorro, soft tissue measuring 1.1 x 0.5 x 0.4 cm submitted entirely in 1 cassette(s) /KARISSA 01/25/2025 1413 Local . 01 Pathologist provided ICD-10: D12.2, D12.3, D12.4, D12.5 . 01 CPT . 623764, 902272, 443541, 424181 Specimen Comment: A courtesy copy of this report has been sent to [phone] Performed at: [address] [id number] MD Michael Castaneda MD Phone: [phone]
[2025-01-18 12:27] VITALS: BP 142/87; PULSE 114; RESP 20; TEMP 36.6; O2SAT 98
--- NOTE | 2025-01-18 12:32 | PM.HP.IH.1 ---
History of Present Illness History of Present Illness Date Patient Seen: 01/18/25 Time Patient Seen: 12:32 Chief complaint: Colonoscopy Narrative: Velvet is a 74-year-old woman who is here for a colonoscopy. She believes her last one was here 5 years ago although there is no record in our EMR. She believes she had one small polyp. No family history of colon cancer. [facility] Medical History (Updated 01/18/25 @ 12:33 by Noah Giang MD) ADHD PTSD (post-traumatic stress disorder) Depression Bipolar 1 disorder Balance problem Chronic back pain Hypothyroidism Diabetes Chronic diarrhea Hyperlipemia [place] (dyspnea on exertion) Pneumonia Sleep apnea with use of continuous positive airway pressure (CPAP) Interstitial lung disease Fibromyalgia Concussion Surgical History (Updated 05/02/18 @ 13:56 by Sherice Christopher RN) History of arthroplasty of left knee History of mandibular surgery Hx of arthroscopy of right knee History of delivery Hx of cholecystectomy Status post bilateral cataract extraction Social History household members: other alcohol intake: current Meds Home Medications and Allergies Home Medications ?Medication ?Instructions ?Recorded ?Confirmed ?Type adalimumab 40 mg/0.8 mL 40 mg SQ Q2W ##0 11/08/17 01/18/25 History subcutaneous pen kit (Humira Pen Suwrxajtu-Hbrdreg-Gqyc Hid Sup Start) cholecalciferol (vitamin D3) 100 4,000 u PO Q DAY ##0 11/23/17 01/18/25 History mcg (4,000 unit) capsule (Vitamin D3) multivitamin (Multiple Vitamins 1 tab PO Q DAY ##0 11/23/17 01/18/25 History tablet) cyclobenzaprine 10 mg tablet 10 mg PO QAM 04/28/18 01/18/25 History acetaminophen 325 mg tablet 975 mg (3 x 325 mg) PO TID #60 tabs 05/13/18 01/18/25 Rx zolpidem 10 mg tablet (Ambien) 5 mg (1/2 x 10 mg) PO HS #30 tabs 05/13/18 01/18/25 Rx Held on 01/18/25. Instructions: Provider's Order albuterol sulfate 90 mcg/actuation 2 puff inhalation Q6H PRN 04/01/23 01/18/25 Rx aerosol inhaler shortness of breath or wheezing #6.7 grams evolocumab 140 mg/mL subcutaneous 140 mg SUBCUT Q2W 04/01/23 01/18/25 History syringe (Repatha Syringe) levothyroxine 175 mcg tablet 88 mcg PO QAM #0 tabs 04/01/23 01/02/25 History risperidone 1 mg tablet 2 mg PO BEDTIME 04/01/23 01/18/25 History sodium,potassium,mag sulfates 17.5 See Rx Instructions PO .COMPLEX 12/14/24 01/18/25 Rx gram-3.13 gram-1.6 gram oral soln #354 mL (Suprep Bowel Prep Kit) dextroamphetamine-amphetamine 10 1 tab PO BID 01/02/25 01/18/25 History mg tablet metformin 500 mg tablet 500 mg PO BID 01/02/25 01/18/25 History risperidone 0.5 mg tablet mg PO 01/02/25 01/02/25 History Allergies Allergy/AdvReac Type Severity Reaction Status Date / Time adhesive tape (ADHESIVE TAPE) Allergy Intermediate RASH, Verified 01/18/25 12:15 BLISTERS codeine AdvReac Severe NAUSEA, Verified 01/18/25 12:15 MUSCLE SPASMS NSAIDS (Non-Steroidal AdvReac Severe GI UPSET, Verified 01/18/25 12:15 Anti-Inflamma PAIN meperidine (From DEMEROL) AdvReac Unknown IT Verified 01/18/25 12:15 DOESN'T WORK ON ME Exam Const General: No acute distress Resp Effort & Inspection: normal respiratory effort Assessment & Plan Assessment and plan (1) Colon cancer screening: Status: Acute Plan Colonoscopy Time-Based Coding :: [TOTAL MINUTES] spent with patient and on the chart (including review of chart, obtaining history, exam, reviewing outside data, placing orders, documenting exam and treatment plan, and counseling patient) on [DATE]. PROFEE Air Pollution Analyst Document charge(s): No
--- NOTE | 2025-01-18 12:43 | EKG_ITS ---
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
[2025-01-18] MEDS: LACTATED RINGERS 1,000 ML 84 ML IV (12:49)
[2025-01-18 14:12] VITALS: BP 143/65; PULSE 78; RESP 12; TEMP 36.2; O2SAT 98
--- NOTE | 2025-01-18 14:13 | PM.OP.COLON ---
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 The patient was connected to monitoring devices. A time-out was performed. Sedation was administered. Once the patient was adequately sedated, a digital rectal exam was performed and was normal. The scope was then inserted and advanced to the cecum where the appendiceal orifice was identified and photographed. The scope was then slowly withdrawn over greater than 6 minutes. The mucosa was thoroughly inspected. There was a large polyp in the ascending colon near the hepatic flexure. It appeared to be about 2 cm. It was removed piecemeal with a hot snare. Tattoo ink was injected around the polypectomy scar. There was a 1 cm polyp in the proximal transverse colon removed with a cold snare. There were 2 polyps in the proximal descending colon removed and sent together. One was about 8 mm and with the other was about 1 cm. There was a 7 mm sigmoid polyp removed with a cold snare. The scope was retroflexed in the rectum. No other abnormalities were found. The scope was straightened and removed. The patient was awakened and brought to recovery. Scope withdrawal time: 34 minutes Sedation time: 41 minutes EBL: 5 mL Findings: 2 cm polyp in the ascending colon, 1 cm polyp in the proximal transverse colon, 8 mm polyp in the proximal descending colon, 1 cm polyp in the proximal descending colon and 7 mm polyp in the sigmoid colon Post-procedure Disposition: PACU
[2025-01-18 14:18] VITALS: BP 148/71; PULSE 88; RESP 21; O2SAT 98
[2025-01-18 14:23] VITALS: BP 149/80; PULSE 76; RESP 10; O2SAT 97
[2025-01-18 14:28] VITALS: BP 155/81; PULSE 80; RESP 22; O2SAT 100
[2025-01-18 14:31] VITALS: BP 155/81; PULSE 82; RESP 12; O2SAT 97
== END 2025-01-18 14:45 | disposition home or self-care (01) ==
PROVIDERS: Family Provider Internal Medicine; PCP Internal Medicine; Referring Provider Surgery; Visit Provider Surgery
PROC: 0DJD8ZZ Inspection of Lower Intestinal Tract, Via Natural or Artificial Opening Endoscopic (ICD-10-PCS; CPT 45378; principal; 2025-01-18 13:30)
DX: Z12.11 Encounter for screening for malignant neoplasm of colon (principal); D12.2 Benign neoplasm of ascending colon; D12.3 Benign neoplasm of transverse colon; D12.4 Benign neoplasm of descending colon; D12.5 Benign neoplasm of sigmoid colon
CPT/HCPCS: 45381; 45385; 93005; 93010; J2704

== ENCOUNTER → 2025-02-05 15:29 | Outpatient (CLI) | payer MEDICARE, MEDICAID, SELFPAY ==
[2018-05-10 17:46] VITALS: BMI 30.6
--- NOTE | 2025-02-05 15:31 | DI.US.S_ITS ---
PROCEDURE: US CAROTID DOPPLER BI INDICATIONS: CAROTID STENOSIS TECHNIQUE: Color and pulse Doppler interrogation was performed of both carotid systems, with image documentation and velocity measurements. COMPARISON: None. FINDINGS: Stenosis calculations are based on SRU ([employer] in Ul[employer]) criteria. Right side: Brachial blood pressure: 131/87 mm Hg. Common carotid artery peak systolic velocity: 50 cm/sec. Internal carotid artery peak systolic velocity: 65 cm/sec. Internal carotid artery end diastolic velocity: 25 cm/sec. External carotid artery peak systolic velocity: 73 cm/sec. ICA/CCA peak systolic ratio: 1.3. [place] scale imaging description: Mild atherosclerotic plaque is seen origin of right internal carotid artery. Percent internal carotid artery stenosis: Less than 50%. Vertebral artery: Flow direction is antegrade. Left side: Brachial blood pressure: 131/72 mm Hg. Common carotid artery peak systolic velocity: 48 cm/sec. Internal carotid artery peak systolic velocity: 66 cm/sec. Internal carotid artery end diastolic velocity: 25 cm/sec. External carotid artery peak systolic velocity: 70 cm/sec. ICA/CCA peak systolic ratio: 1.4. [place] scale imaging description: Mild atherosclerotic plaques are seen in distal common carotid artery and origin of internal carotid artery. Percent internal carotid artery stenosis: Less than 50%. Vertebral artery: Flow direction is antegrade. IMPRESSION: 1. In the right carotid artery, there is less than 50% stenosis based on peak systolic velocity criteria. 2. In the left carotid artery, there is less than 50% stenosis based on peak systolic velocity criteria. 3. Antegrade vertebral arteries. Dictated by: Maxi Munguia M.D. on 02/05/2025 at 17:28 Approved by: Maxi Munguia M.D. on 02/05/2025 at 17:29
== END ==
LOC: US 15:30
PROVIDERS: Family Provider Internal Medicine; PCP Internal Medicine; Referring Provider Internal Medicine; Visit Provider Internal Medicine
DX: I65.22 Occlusion and stenosis of left carotid artery (principal)
CPT/HCPCS: 93880